=== PATIENT | female | born 2005 | race Caucasian/White ===

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

== ENCOUNTER 2024-05-16 22:42 | Emergency (ER) | payer SELFPAY ==
--- NOTE | ~2024-05-16 | US_ITS ---
EXAMINATION: US PELVIS CLINICAL INFORMATION: Menorrhagia. COMPARISON: None available. TECHNIQUE: Ultrasound of the pelvis is performed using both transabdominal and transvaginal transducers along with Doppler. Transvaginal imaging is performed due to inadequate visualization transabdominally. FINDINGS: Uterus: The uterus is anteverted and measures 7.3 x 4 x 4.5 cm. A nabothian cyst is noted. The double wall endometrial thickness is 1.2 mm. The uterus is smooth in contour and has normal myometrial echogenicity. No visible fibroid. Adnexa: Both ovaries are visualized. There is normal color flow to the adnexa. There is no ovarian torsion. There is no pelvic ascites or fluid collection. Right ovary measures 3 x 3 x 1.8 cm. Left ovary measures 3.2 x 1.8 x 2.2 cm. US/US pelvic and transvaginal IMPRESSION: No significant abnormality seen.
[2024-05-16 22:51] VITALS: BP 122/77; PULSE 68; RESP 18; TEMP 36.1; O2SAT 98; BMI 38.4
[2024-05-16 23:40] LABS: Hematocrit 39.7 % (37.0-47.0); Hemoglobin 13.1 g/dl (12.0-16.0); Mean Corpuscular Hemoglobin 28.7 pg (27.0-33.0); Mean Corpuscular Volume 86.9 fL (80.0-98.0); Mean Platelet Volume 9.9 fL (9.4-12.3); Platelet Count 311 X10*3/uL (160-400); Red Blood Count 4.57 X10*6/uL (4.20-5.50); Red Cell Distribution Width 12.6 % (11.0-16.0); White Blood Count 12.2 X10*3/uL (4.8-10.8)
[2024-05-16 23:52] LABS: UPreg QC Valid YES; Urine Pregnancy NEGATIVE (NEGATIVE)
[2024-05-16 23:53] LABS: Appearance Urine Cloudy; Glucose Urine UA Negative (Negative); Leukocyte Esterase Urine Trace (Negative); Nitrite Urine Positive (Negative); Specific Gravity - Urine >= 1.030 (1.005-1.025); UMIC TRIGGER UACC YES; Urine Blood Moderate (2+) (Negative); Urine Ketones Trace mg/dL (Negative); Urine Protein 300 (3+) mg/dL (Neg-Trace)
[2024-05-16 23:54] LABS: Color Urine RED; RBC Urine >20 /HPF (0-2); UACC Culture Trigger YES
[2024-05-16 23:55] LABS: Bacteria Urine 1+ (None Seen); Hyaline Casts Urine 0-2 /LPF (0-2)
[2024-05-16 23:58] LABS: Alanine Aminotransferase 19 U/L (0-31); Albumin Level 4.4 g/dL (3.5-5.0); Alkaline Phosphatase 98 U/L (39-117); Anion Gap 12 (12-20); Aspartate Amino Transferase 16 U/L (5-31); Bilirubin Total 0.4 mg/dL (0.0-1.0); Blood Urea Nitrogen 12 mg/dL (9-16); Calcium 9.6 mg/dL (8.4-10.2); Carbon Dioxide 25 mmol/L (22-29); Chloride 107 mmol/L (96-108); Creatinine Clr Calc Pharmacy 129.7; Estimated Glomerular Filt Rate > 60; Glucose Random 97 mg/dL (60-115); Potassium 3.8 mmol/L (3.3-5.1); Sodium 140 mmol/L (135-145); Total Protein 7.3 g/dL (6.5-8.0)
[2024-05-17] VITALS: BP 116/69; PULSE 77; RESP 16; TEMP 37.1; O2SAT 100
[2024-05-17 00:52] VITALS: BP 114/62; BP 116/69; BP 117/67; PULSE 65; PULSE 69
--- NOTE | 2024-05-17 01:29 | ED_ITS ---
HPI - General Adult General Chief complaint: Vaginal Bleeding Stated complaint: Heavy Menses Time Seen by Provider: 05/17/24 01:29 History of Present Illness ED Provider: Coty ALVAREZ narrative: The patient is a 18-year-old female who says that she started having menses four days ago on Friday. She says that the morning before her menses began she had taken plan B because she had had unprotected intercourse the night before. The patient has sense that since her menses started the menses have been unusually heavy and uncomfortable. She has been passing large clots. She has been changing pads and tampons with great frequency. No syncope. No nausea or vomiting. No fever, sweats, chills. Related Data Previous Rx's ?Medication ?Instructions ?Recorded sulfamethoxazole 800 1 tab PO BID 7 days #14 tabs 08/05/22 mg-trimethoprim 160 mg tablet (Bactrim DS) tranexamic acid 650 mg tablet 1,300 mg (2 x 650 mg) PO TID 5 05/17/24 days #30 tabs Allergies Allergy/AdvReac Type Severity Reaction Status Date / Time amoxicillin [AMOXICILLIN] Allergy Unknown HIVES Verified 05/16/24 22:56 kiwi [KIWI] Allergy Unknown SWELLING Verified 05/16/24 22:56 Review of Systems 2 Review of Systems: Yes all other systems are reviewed and are negative [facility] Social History Social History Alcohol intake: current Smoked in Last 30 Days: No Use of substances other than those prescribed or required for medical reasons: Yes Substance Use Type: Marijuana Advance Directives: No Advance Directives Information Provided: Yes Do you have a plan to hurt others: No Plan Physical Exam ED Vital Signs: Vital Signs - 24 hr 05/16/24 22:51 05/17/24 00:00 05/17/24 00:52 Temperature 96.9 F 98.7 F Pulse Rate 68 77 65 Respiratory Rate 18 16 Blood Pressure 122/77 116/69 114/62 Pulse Oximetry 98 100 Oxygen Delivery Method Room Air Room Air 05/17/24 00:52 05/17/24 00:52 Temperature Pulse Rate 69 Respiratory Rate Blood Pressure 117/67 116/69 Pulse Oximetry Oxygen Delivery Method BMI result Body Mass Index 38.4 Const Other: The patient is awake, alert, pleasant, cooperative. She does not appear in acute distress. HENMT Other: Face is symmetrical, mucous membranes moist Eyes Other: Pupils are round equal, conjunctivae clear Neck Other: Moving her neck easily Resp Effort & Inspection: normal respiratory effort Auscultation: clear to auscultation bilaterally Cardio Rate: regular rate Rhythm: regular rhythm Heart sounds: S1 normal heart sound present and S2 normal heart sound present GI Other: Abdomen is soft and nontender Skin Other: Skin is dry and unremarkable Neuro Other: Awake, alert, appropriate, grossly neurologically intact Extrem Other: No peripheral edema Medications Administered Discontinued Medications Generic Name Dose Route Start Last Admin Trade Name Freq PRN Reason Stop Dose Admin Ketorolac Tromethamine 30 mg 05/17/24 01:35 05/17/24 01:54 Ketorolac Tromethamine 30 Mg/Ml Vial IM 05/17/24 01:36 30 mg ONCE ONE Administration Medical Decision Making Medical Decision Making [facility] Narrative: The patient is a 18-year-old female who presents with vaginal bleeding. She says that vaginal bleeding started at the time that she expected her menses but the degree of bleeding and the crampy discomfort is worse than usual. She says she has gone through multiple pads and passed large clots in a manner that she has never done before. test is negative. Hemoglobin is stable. Clinically the patient is stable with a normal heart rate and blood pressure. Pelvic ultrasound is unremarkable. The patient was given 30 mg of IM ketorolac. She will be prescribed TXA orally. She should follow up with Gynecology. Return if worse. Lab Data 05/16/24 23:27 05/16/24 23:27 Labs: Lab Results 05/16/24 Range/Units 23:27 WBC 12.2 H (4.8-10.8) X10*3/uL RBC 4.57 (4.20-5.50) X10*6/uL Hgb 13.1 (12.0-16.0) g/dl Hct 39.7 (37.0-47.0) % MCV 86.9 (80.0-98.0) fL MCH 28.7 (27.0-33.0) pg MCHC 33.0 (31.0-35.0) g/dl RDW 12.6 (11.0-16.0) % Plt Count 311 (160-400) X10*3/uL MPV 9.9 (9.4-12.3) fL Absolute Nucleated RBC 0.000 (0.0-0.012) X10*3/uL Nucleated RBC % (auto) 0.0 (0.0-0.2) /100WBC Sodium 140 (135-145) mmol/L Potassium 3.8 (3.3-5.1) mmol/L Chloride 107 (96-108) mmol/L Carbon Dioxide 25 (22-29) mmol/L Anion Gap 12 (12-20) BUN 12 (9-16) mg/dL Creatinine 0.86 (0.5-1.4) mg/dL Estim Creat Clear Calc 129.7 Estimated GFR > 60 Random Glucose 97 (60-115) mg/dL Calcium 9.6 (8.4-10.2) mg/dL Total Bilirubin 0.4 (0.0-1.0) mg/dL AST 16 (5-31) U/L ALT 19 (0-31) U/L Alkaline Phosphatase 98 (39-117) U/L Total Protein 7.3 (6.5-8.0) g/dL Albumin 4.4 (3.5-5.0) g/dL Urine Color RED Urine Appearance Cloudy Urine pH 6.0 (5.0-9.0) Ur Specific [place] >= 1.030 H (1.005-1.025) Urine Protein 300 (3+) H (Neg-Trace) mg/dL Urine Glucose (UA) Negative (Negative) mg/dL Urine Ketones Trace (Negative) mg/dL Urine Blood Moderate (2+) H (Negative) Urine Nitrite Positive H (Negative) Ur Leukocyte Esterase Trace H (Negative) Urine RBC >20 H (0-2) /HPF Urine WBC 6-10 (0-5) /HPF Ur Squamous Epith Cells 3-5 (0-2) /HPF Urine Bacteria 1+ (None Seen) Hyaline Casts 0-2 (0-2) /LPF Urine Test NEGATIVE (NEGATIVE) Discharge Plan Discharge Clinical Impression: Menorrhagia Patient Disposition: Home, Self-Care Instructions: Menorrhagia (ED) Additional Instructions: I have sent a prescription for medication called tranexamic acid to your pharmacy. Please take this 3 times a day for 5 days. This medication is effective in reducing heavy vaginal bleeding with periods. I think it would also be reasonable for you to see a farm machine tender. You have the name and number of Dr. Patel's office. Please call the office in the morning for a follow up appointment. Return to the emergency room if significantly worse. Prescriptions: New tranexamic acid 650 mg tablet 1,300 mg PO TID 5 Days Qty: 30 0RF No Action sulfamethoxazole-trimethoprim [Bactrim DS] 800-160 mg tablet 1 tab PO BID 7 Days Qty: 14 0RF Referrals: Leoncio Patel MD [Physician] - (Abnormally heavy menstrual bleeding) Print Language: Korean
[2024-05-17] MEDS: Ketorolac Tromethamine 30 MG/ML VIAL IM (01:54)
[2024-05-17 03:28] VITALS: BP 117/68; PULSE 68; RESP 16; TEMP 36.8; O2SAT 99
== END 2024-05-17 03:29 | disposition home or self-care (01) ==
PROVIDERS: Emergency Provider Emergency Medicine; PCP Pediatrics
DX: N92.0 Excessive and frequent menstruation with regular cycle (principal); R10.2 Pelvic and perineal pain; Z79.899 Other long term (current) drug therapy
CPT/HCPCS: 36415; 76830; 76856; 80053; 81001; 81025; 85027; 87086; 96372; 99284; J1885

== ENCOUNTER 2024-12-14 00:03 | Emergency (ER) | payer SELFPAY ==
[2024-12-14 00:06] VITALS: BP 134/88; PULSE 62; RESP 17; TEMP 36.7; O2SAT 98; BMI 34.8
[2024-12-14 00:28] LABS: MANUAL DIFF FLAG NO
[2024-12-14 00:29] LABS: Basophils Percent Auto 0.3 % (0-2); Eosinophils Absolute Auto 0.1 X10*3/uL (0.0-0.4); Eosinophils Percent Auto 0.5 % (0-4); Hematocrit 40.2 % (37.0-47.0); Hemoglobin 13.5 g/dl (12.0-16.0); Imm Gran Abs Auto 0.03 X10*3/uL (0.00-0.03); Imm Gran Pct Auto 0.3 % (0.0-0.4); Lymphocytes Absolute Auto 2.5 X10*3/uL (1.2-4.9); Lymphocytes Percent Auto 21.2 % (20-40); Mean Corpuscular HGB Conc 33.6 g/dl (31.0-35.0); Mean Corpuscular Hemoglobin 28.1 pg (27.0-33.0); Mean Corpuscular Volume 83.6 fL (80.0-98.0); Mean Platelet Volume 9.7 fL (9.4-12.3); Monocytes Absolute Auto 0.8 X10*3/uL (0.1-1.2); Neutrophils Absolute Auto 8.3 x10*3/uL (2.0-8.3); Neutrophils Percent Auto 70.7 % (45-73); Platelet Count 277 X10*3/uL (160-400); Red Blood Count 4.81 X10*6/uL (4.20-5.50); Red Cell Distribution Width 13.1 % (11.0-16.0); White Blood Count 11.7 X10*3/uL (4.8-10.8)
[2024-12-14 01:00] LABS: Alanine Aminotransferase 20 U/L (0-31); Albumin Level 4.1 g/dL (3.5-5.0); Anion Gap 11 (12-20); Aspartate Amino Transferase 24 U/L (5-31); Bilirubin Total 0.4 mg/dL (0.0-1.0); Blood Urea Nitrogen 12 mg/dL (9-16); Calcium 9.8 mg/dL (8.4-10.2); Carbon Dioxide 27 mmol/L (22-29); Chloride 107 mmol/L (96-108); Estimated Glomerular Filt Rate > 60; Glucose Random 94 mg/dL (60-115); Lipase 14 U/L (8-78); Potassium 3.8 mmol/L (3.3-5.1); Sodium 141 mmol/L (135-145)
[2024-12-14 01:06] LABS: HCG Quantitative < 2 mIU/mL; Influenza A PCR NEGATIVE (Negative); Influenza B PCR NEGATIVE (Negative); Resp Syncy Virus RNA Qual PCR NEGATIVE (Negative); SARS COV2 PCR INHOUSE NEGATIVE (Negative)
[2024-12-14 03:15] LABS: Alkaline Phosphatase 82 U/L (39-117)
[2024-12-14 03:56] VITALS: BP 118/58; PULSE 56; RESP 16; TEMP 36.8; O2SAT 97
--- NOTE | 2024-12-14 04:12 | ED_ITS ---
HPI - General Adult General Chief complaint: Nausea/Vomiting/Diarrhea Stated complaint: vomiting blood Time Seen by Provider: 12/14/24 03:50 Source: patient Mode of arrival: ambulatory Limitations: no limitations History of Present Illness ED Provider: DR. Ivy HPI narrative: 19-year-old female came in for evaluation of headache that is similar to her prior headache, patient with history of migraine. Patient started to have nausea and vomiting noticed blood streaks in the vomit. Complaining of epigastric pain. No photophobia, no neck stiffness. No sick contacts, no recent travel, no diarrhea, last bowel movement was early yesterday and was normal. Related Data Previous Rx's ?Medication ?Instructions ?Recorded sulfamethoxazole 800 1 tab PO BID 7 days #14 tabs 08/05/22 mg-trimethoprim 160 mg tablet (Bactrim DS) tranexamic acid 650 mg tablet 1,300 mg (2 x 650 mg) PO TID 5 05/17/24 days #30 tabs omeprazole 40 mg capsule,delayed 40 mg PO DAILY #14 caps 12/14/24 release Allergies Allergy/AdvReac Type Severity Reaction Status Date / Time amoxicillin [AMOXICILLIN] Allergy Unknown HIVES Verified 12/14/24 00:09 kiwi [KIWI] Allergy Unknown SWELLING Verified 12/14/24 00:09 Review of Systems 2 Review of Systems: All other systems are reviewed and are negative Constitutional: Reports as per HPI and Reports no additional constitutional complaints Eyes: Reports as per HPI and Reports no additional eye complaints Reports system reviewed and no additional complaints, except as documented Cardiovascular: Reports as per HPI and Reports no additional cardiovascular complaints Respiratory: Reports as per HPI and Reports no additional respiratory complaints Gastrointestinal: Reports as per HPI and Reports no additional gastrointestinal complaints Genitourinary: Reports no additional female genitourinary complaints Musculoskeletal: Reports no additional musculoskeletal complaints Skin/Breast: Reports system reviewed and no additional complaints, except as docu Psychiatric: Reports no additional psychiatric complaints Endocrine: Reports no additional endocrine complaints Hematologic/Lymphatic: Reports no additional hematologic/lymphatic complaints Allergic/Immunologic: Reports no additional allergic/immunologic complaints Reports system reviewed and no additional complaints, except as documented and Reports Abnormal speech present [facility] Social History Social History Alcohol intake: current Substance Use Type: Marijuana Advance Directives: No Advance Directives Information Provided: Yes Do you have a plan to hurt others: No Plan Physical Exam ED Vital Signs: Vital Signs - 24 hr 12/14/24 00:06 12/14/24 03:56 12/14/24 06:19 Temperature 98.0 F 98.3 F 98.8 F Pulse Rate 62 56 51 Respiratory Rate 17 16 16 Blood Pressure 134/88 118/58 L 115/55 L Pulse Oximetry 98 97 97 Oxygen Delivery Method Room Air Room Air Room Air BMI result Body Mass Index 34.8 Vital signs have been reviewed and appear to be correct. Blood pressure elevated. Heart rate normal. Respiratory rate normal. Temperature normal. Oxygen saturation normal. Appearance: Alert. Oriented X3. No acute distress. Head: Normal external exam. Normocephalic. Atraumatic. No Mcelroy signs noted. No raccoon eyes noted Eyes: PERRLA. EOMI. Conjunctiva and sclera normal. Eyelids normal. ENT: TM's Normal. Pharynx normal. Uvula midline. Moist mucous membranes. No trismus noted. No drooling noted. No muffled voice noted. Neck: Normal inspection. Neck supple. FROM. No adenopathy. Thyroid Normal. No meningeal signs. No neck mass noted. CVS: Normal heart rate and rhythm. Heart sound normal. No murmurs noted. Pulses normal throughout. Respiratory: No respiratory distress. Painless inspiration. Breath sounds normal. No wheezes/rales/rhonchi noted. Chest nontender. No accessory muscle usage noted or decreased air movement noted. Abdomen: Soft and nontender. Bowel sounds normal in all 4 quadrants. No distention noted. No organomegaly noted. No visible injury noted. Back: No CVA tenderness. Full range of motion noted. Skin: Skin warm and dry. Normal skin color. Normal skin turgor. No rashes/lesions/lacerations noted. Extremities: No lower extremity edema. Extremities exhibit normal range of motion. Extremities nontender. Neuro: Oriented X 3. Cranial nerve exam: II-XII are grossly intact No motor deficit. No sensory deficit. Reflexes normal. Course Reevaluation(s) Reevaluation #1: Migraine and vomiting. Patient feels better headache and epigastric pain have improved, able tolerate p.o. intake.. Time: 06:28 Medications Administered Discontinued Medications Generic Name Dose Route Start Last Admin Trade Name Freq PRN Reason Stop Dose Admin Al Hydroxide/Mg Hydroxide 30 ml 12/14/24 04:11 12/14/24 04:32 Magnesium Hydrox/Alum Hydrox 30 Ml Oral.Susp PO 12/14/24 04:12 30 ml ONCE ONE Administration Diphenhydramine HCl 25 mg 12/14/24 04:11 12/14/24 04:32 Diphenhydramine Hcl 50 Mg/Ml Vial IVPUSH 12/14/24 04:12 25 mg ONCE ONE Administration Famotidine 20 mg 12/14/24 04:11 12/14/24 04:32 Famotidine/Pf 20 Mg/2 Ml Vial IVPUSH 12/14/24 04:12 20 mg ONCE ONE Administration Sodium Chloride 1,000 mls @ 999 mls/hr 12/14/24 04:11 12/14/24 05:45 Ns IV 12/14/24 05:11 Infused .Q1H1M ONE Infusion Acetaminophen 1,000 mg in 100 mls @ 400 mls/hr 12/14/24 04:24 12/14/24 04:50 Ofirmev IV 12/14/24 04:38 Infused ONCE ONE Infusion Ondansetron HCl 4 mg 12/14/24 04:11 12/14/24 04:33 Ondansetron Hcl 4 Mg/2 Ml Vial IVPUSH 12/14/24 04:12 4 mg ONCE ONE Administration Medical Decision Making Differential Diagnosis Differential Diagnoses: The differential diagnosis associated with the presentation includes ( Migraine, headache, gastritis, gallbladder disease, dehydration, electrolyte derangement, severe anemia, gastroenteritis, food poisoning.) Admission/Observation Consideration of admission/observation: Escalation of care including admission/observation considered Lab Data MDM Lab Attestation statement: I reviewed the patient's lab results. 12/14/24 00:20 12/14/24 00:20 Labs: Lab Results 12/14/24 Range/Units 00:20 WBC 11.7 H (4.8-10.8) X10*3/uL RBC 4.81 (4.20-5.50) X10*6/uL Hgb 13.5 (12.0-16.0) g/dl Hct 40.2 (37.0-47.0) % MCV 83.6 (80.0-98.0) fL MCH 28.1 (27.0-33.0) pg MCHC 33.6 (31.0-35.0) g/dl RDW 13.1 (11.0-16.0) % Plt Count 277 (160-400) X10*3/uL MPV 9.7 (9.4-12.3) fL Immature Gran % (Auto) 0.3 (0.0-0.4) % Neut % (Auto) 70.7 (45-73) % Lymph % (Auto) 21.2 (20-40) % Wilkin % (Auto) 7.0 (2-11) % Eos % (Auto) 0.5 (0-4) % Baso % (Auto) 0.3 (0-2) % Lymph # (Auto) 2.5 (1.2-4.9) X10*3/uL Wilkin # (Auto) 0.8 (0.1-1.2) X10*3/uL Eos # (Auto) 0.1 (0.0-0.4) X10*3/uL Baso # (Auto) 0.0 (0.0-0.2) X10*3/uL Abs Immat Gran (auto) 0.03 (0.00-0.03) X10*3/uL Absolute Neuts (auto) 8.3 (2.0-8.3) x10*3/uL Absolute Nucleated RBC 0.000 (0.0-0.012) X10*3/uL Nucleated RBC % (auto) 0.0 (0.0-0.2) /100WBC Sodium 141 (135-145) mmol/L Potassium 3.8 (3.3-5.1) mmol/L Chloride 107 (96-108) mmol/L Carbon Dioxide 27 (22-29) mmol/L Anion Gap 11 L (12-20) BUN 12 (9-16) mg/dL Creatinine 0.76 (0.5-1.4) mg/dL Estim Creat Clear Calc 138.0 Estimated GFR > 60 Random Glucose 94 (60-115) mg/dL Calcium 9.8 (8.4-10.2) mg/dL Total Bilirubin 0.4 (0.0-1.0) mg/dL AST 24 (5-31) U/L ALT 20 (0-31) U/L Alkaline Phosphatase 82 (39-117) U/L Total Protein 8.0 (6.5-8.0) g/dL Albumin 4.1 (3.5-5.0) g/dL Lipase 14 (8-78) U/L Beta HCG, Quant < 2 mIU/mL Influenza Type A (PCR) NEGATIVE (Negative) Influenza Type B (PCR) NEGATIVE (Negative) RSV RNA Qual (PCR) NEGATIVE (Negative) SARS-CoV-2 RNA (RT-PCR) NEGATIVE (Negative) Discharge Plan Discharge Clinical Impression: Migraine, Vomiting, Gastritis Patient Disposition: Home, Self-Care Instructions: Gastritis (ED), Migraine Headache (ED) Prescriptions: New omeprazole 40 mg capsule,delayed release(DR/EC) 40 mg PO DAILY Qty: 14 0RF No Action tranexamic acid 650 mg tablet 1,300 mg PO TID 5 Days Qty: 30 0RF sulfamethoxazole-trimethoprim [Bactrim DS] 800-160 mg tablet 1 tab PO BID 7 Days Qty: 14 0RF Stand Alone Forms: Work/School Release Print Language: Ugandan
[2024-12-14] MEDS: diphenhydrAMINE HCL 50 MG/ML VIAL 25 MG IVPUSH (04:32)
[2024-12-14] MEDS: Magnesium Hydrox/Alum Hydrox 30 ML ORAL.SUSP PO (04:32)
[2024-12-14] MEDS: Famotidine/PF 20 MG/2 ML VIAL IVPUSH (04:32)
[2024-12-14] MEDS: Acetaminophen 1,000 MG/100 ML PIGGYBACK 400 MG IV (04:33)
[2024-12-14] MEDS: 0.9 % Sodium Chloride 1,000 ML 999 ML IV (04:33)
[2024-12-14] MEDS: ondansetron HCL 4 MG/2 ML VIAL IVPUSH (04:33)
[2024-12-14 06:19] VITALS: BP 115/55; PULSE 51; RESP 16; TEMP 37.1; O2SAT 97
[2024-12-14 06:35] VITALS: BP 122/77; PULSE 68; RESP 14; TEMP 36.8; O2SAT 98
== END 2024-12-14 06:37 | disposition home or self-care (01) ==
PROVIDERS: Emergency Provider Emergency Medicine
DX: K29.70 Gastritis, unspecified, without bleeding (principal); R11.2 Nausea with vomiting, unspecified; R10.2 Pelvic and perineal pain; R51.9 Headache, unspecified; R10.13 Epigastric pain; Z03.818 Encounter for observation for suspected exposure to other biological agents ruled out
CPT/HCPCS: 0241U; 80053; 83690; 84702; 85025; 96361; 96365; 96375; 99284; J0131; J1200; J2405

== ENCOUNTER 2025-05-02 20:48 | Emergency (ER) | payer SELFPAY ==
--- NOTE | 2025-05-02 | ECG_ITS ---
Test Reason : SEIZURE Blood Pressure : */* mmHG Vent. Rate : 75 BPM Atrial Rate : 75 BPM P-R Int : 168 ms QRS Dur : 86 ms QT Int : 362 ms P-R-T Axes : 36 29 23 degrees QTcB Int : 404 ms Normal sinus rhythm with sinus arrhythmia Normal ECG No previous ECGs available Referred By: Generic ED Physician Electronically Signed By: JULIO GAR MD
--- NOTE | ~2025-05-02 | XR_ITS ---
CLINICAL HISTORY: tightness 2 view chest x-ray Comparison: None provided Findings: No consolidation or effusion. Normal size heart. No acute fracture. IMPRESSION: 1. No acute findings. This document has been electronically signed by: Chito Topete MD on 05/02/2025 22:27:39
[2025-05-02 20:48] VITALS: BP 145/82; BP 145/84; PULSE 78; PULSE 85; RESP 15; TEMP 37.1; O2SAT 98; O2SAT 99; BMI 37.0
--- OUTSIDE RECORDS SUMMARY | 2025-05-02 21:06 | XMS_ITS | Data Portability ---
Author Organization [facility] [id number] Address [address] [place] [address] Assessment No assessment recorded. Plan of Treatment Reminders Order Date Submit Date Provider Last Modified By Organization Details Last Modified Time Details Appointments None recorded. Lab None recorded. Referral None recorded. Procedures None recorded. Surgeries None recorded. Imaging None recorded. Medication Orders doxycycline hyclate 100 mg capsule 2022 023 [facility] #[id number], [address] [place], [address], 09:51:55 Patient TargetsNo targets recorded. Patient Instructions Encounter Date Encounter Id Patient Instructions Last Modified By Organization Details Last Modified Time 04/22/2023 [id number] insect stings an d bites: care instructions Not available 04/22/2023 09:51:53 cellulitis: care instructions Not available 04/22/2023 09:51:52 Reason for Referral None Reported. Problems No Known Problems Medical Equipment None Reported. Allergies Allergen ID Allergen Name Allergen Category Reaction Reaction Severity Criticality Documentation Date Start Date Code Code System Note Provider Name and Address Organization Details Recorded Time [id number] amoxicill in medicatio n Not available Not available Not available 04/22/2023 723 RxNorm unkno wn JULIA Soto [facility] 09:14:56 Medications Name Sig Start Date Stop Date Status Note LastModified by Organization Details LastModified Time doxycycline hyclate 100 mg capsule TAKE 1 CAPSULE BY MOUTH TWICE A DAY FOR 10 DAYS active Not Available Not Available No t Available meloxicam 15 mg tablet TAKE 1 TABLET BY MOUTH EVERY DAY NEEDED FOR PAIN 04/22 completed Not Available Not Available Not Available sulfamethoxa zole 800 mg-trimethop rim 160 mg tablet TAKE 1 TABLET BY MOUTH TWICE A DAY FOR 7 DAYS 04/22 completed Not Available Not Available Not Available Vitals Date Recorded Body height Body mass index (BMI) [Percentile] Per age and sex Body mass index (BMI) Body weight Pain severity - 0-10 verbal numeric rating [Score] - Reported Respiratory rate Oxygen saturation Oxygen saturation in Arterial blood by Pulse oximetry Heart rate Body temperature Systolic And Diastolic Provider Name and Address Organization Details Last Updated DateTime 3 165.1 cm 98 % 38.3 kg/m2 962571. 25 g 4 18 /min 98 % 98 % 59 /min 98.8 [degF] 133/85 mm[Hg] Miranda Telles [employer] 09:17:27 Social History Question Answer Notes LastModified by [employer] Details LastModified Time Tobacco Smoking Status Never Smoker JULIA Soto [employer] 04/22/2023 09:15:24 Have You Recently Traveled Abroad? No Information not available 04/22/2023 Sex: Unknown Functional Status Question Answer Note LastModified by [employer] Details LastModified Time Do you use any illicit or recreational drugs? No Information not available 04/22/2023 Do you or have you ever used any other forms of tobacco or nicotine? No Information not available 04/22/2023 What is your level of alcohol consumption? None Information not available 04/22/2023 Mental Status None recorded. Family History Relationship Description Onset Age of this Age Resolved Age Notes LastModified by Organization Details LastModified Time Father No current problems or disability [email or web address] Not available 04/22 09:15:16 Mother No current problems or disability [email or web address] Not available 04/22 09:15:16 Medical History No medical history recorded. Gynecological History Statement/Question Response Is there any chance of ? No Obstetrics History GPAL:G 0 P 0 0 0 0 Immunizations Vaccine Type Date Status Note Provider Nam e and Address Organization Details Recorded Time HPV9 6 completed JULIA Soto [place] [facility] [employer] 04/22/2023 09:14:43 HPV9 7 completed Miranda Monfette null, [place] - [facility] 04/22/2023 09:14:43 HPV9 5 completed Miranda Monfette null, PA - [facility] 04/22/2023 09:14:43 COVID-19, mRNA, LNP-S, PF, 30 mcg/0.3 mL dose 1 completed Miranda Monfette null, PA - [facility] 04/22/2023 09:14:43 COVID-19, mRNA, LNP-S, PF, 30 mcg/0.3 mL dose 1 completed Miranda Monfette null, PA - [facility] 04/22/2023 09:14:44 COVID-19, mRNA, LNP-S, bivalent, PF, 30 mcg/0.3 mL dose 2 completed Miranda Monfette null, PA - [facility] 04/22/2023 09:14:44 Tdap 5 completed Miranda Monfette null, PA - [facility] 04/22/2023 09:14:44 Influenza, split virus, trivalent, preservative 7 completed Miranda Monfette null, PA - [facility] 04/22/2023 09:14:44 Hep A, ped/adol, 2 dose 7 completed Miranda Monfette null, PA - [facility] 04/22/2023 09:14:44 Hep A, ped/adol, 2 dose 8 completed Miranda Monfette null, PA - [facility] 04/22/2023 09:14:44 meningococcal MCV4P 1 completed Miranda Monfette null, PA - [facility] 04/22/2023 09:14:44 meningococcal MCV4P 5 completed Miranda Monfette null, PA - [facility] 04/22/2023 09:14:44 Influenza, split virus, quadrivalent, PF 1 completed Miranda Monfette null, PA - [facility] 04/22/2023 09:14:44 Influenza, split virus, quadrivalent, PF 2 completed Miranda Sterling null, PA - [facility] 04/22/2023 09:14:44 Influenza, split virus, quadrivalent, PF 8 completed Miranda Doylee null, PA - [facility] 04/22/2023 09:14:44 Influenza, split virus, quadrivalent, PF 9 completed Miranda Gatestte null, PA - [facility] 04/22/2023 09:14:44 Past Encounters Encounter ID Performer Location Encounter Start Date Encounter Closed Date Diagnosis/Indication Diagnosis SNOMED-CT Code Diagnosis ICD10 Code Diagnosis Note [id number] [address] [place] [address] 05/08/2021 15:54:56 05/08/2021 17:50:27 [id number] [address] [place] [address] 06/26/2020 14:33:32 06/26/2020 15:35:45 [id number] [address] [address] [place] [address] 07/14/2022 09:00:03 07/14/2022 11:12:37 [id number] Jesus Goetz MD [address] [place] [address] 04/22/2023 08:19:44 04/22/2023 09:57:08 Infected insect bite 066542121 L08.9 Please follow up with PCP or Urgent Care in 3-5 days if no improvemen t or if any new symptoms occur that are concerning .recommend ed warm compresses or Epsom salt soaks. F/u for any increased swelling, redness, drainage, fever, or red streaks that travel up from the wound. Health Concerns Section Related Observation LastModified by Organization Detai ls LastModified Time None Recorded Concern Status LastModified by Organization Details LastModified Time None Recorded Advance Directives Directive None Recorded Payers Insurance Date Sequence Insurance Name Policy Number Policy Flores Covered Member ID Flores Member ID Guarantor Name 04/22/2023 1 [facility] [id number] Gissel Stoll [id number] Gissel Stoll OBGyn Episode No OBEpisode recorded.
--- OUTSIDE RECORDS SUMMARY | 2025-05-02 21:06 | XMS_ITS | Clinical Summary ---
Author Organization [facility] Address [address] [place] [address] Phone Care Team Providers Care Financial Accounting Manager Name Role Phone Physician, No Pcp Primary Care Provider Unavaila ble Allergies Active Allergy Reactions Criticality Noted Date Comments Amoxicillin Swelling 03/08/2025 Medications No known medications Active Problems No known active problems Encounters Date Type Department Care Team Description 03/08/2025 11:05 AM EDT - 03/08/2025 1:22 PM EDT Emergency [facility] Emergency [address] [place] [address] Gastroesophageal reflux disease, unspecified whether esophagitis present (Primary Dx) Discharge Disposition: Home or Self Care from Last 3 Months Social History Tobacco Use Types Packs/Day Years Used Date Smoking Tobacco: Never Smokeless Tobacco: Never Tobacco Cessation:Counseling Given: Not Answered Alcohol Use Standard Drinks/Week Comments Never 0 (1 standard drink = 0.6 oz pur e alcohol) Comments Unknown Sex and Gender Information Value Date Recorded Sex Assigned at Not on file Legal Sex Female 9:59 AM EDT Gender Identity Not on file Sexual Orientation Not on file Obstetrics History Last Filed Vital Signs Vital Sign Reading Time Taken Comments Blood Pressure 137/75 03/08/2025 12:49 PM EDT Pulse 72 03/08/2025 12:49 PM EDT Temperature 37.3 C (99.1 F) 03/08/2025 12:49 PM EDT Respiratory Rate 20 03/08/2025 12:49 PM EDT Oxygen Saturation 99% 03/08/2025 12:49 PM EDT Inhaled Oxygen Concentration - - Weight 90.3 kg (199 lb) 03/08/2025 10:08 AM EDT Height 167.6 cm (5' 6 ) 03/08/2025 10:08 AM EDT Body Mass Index 32.12 03/08/2025 10:08 AM EDT Plan of Treatment Health Maintenance Due Date Last Done Comments Gonorrhea/Chlamydia Screening 2003 Meningococcal B Vaccine (1 of 2 - Standard) 2019 COVID-19 Vaccine ( - season) 2024 08/21/2022, 04/03/2021, 03/13/2021 Depression Screening 10/06/2024 Cervical Cancer Screening: Pap Smear 2024 Annual Well Child Visit (3-21 years old) 03/08/2025 02/11/2022, 10/17/2020, 09/07/2019, Additional history exists Cholesterol Screening (Lipid Panel) 03/08/2025 HIV Screening 03/08/2025 Hepatitis C Screening 03/08/2025 Social Influencers of Health Screening 03/08/2025 Influenza Vaccine (#1) 2025 , 10/17/2020, 09/07/2019, Additional history exists DTaP,Tdap,and Td Vaccines (7 - Td or Tdap) 08/16/2025 08/16/2015, 01/31/2009, 07/31/2005, Additional history exists Hepatitis B Vaccines Completed 11/01/2004, 2003, 2003 HIB Vaccines Completed 07/31/2005, 05/07, 04/05/2004, Additional history exists Pneumococcal Vaccine: Pediatrics (0 to 5 Years) and At-Risk Patients (6 to 49 Years) Completed 07/31/2005, 05/25/2004, 04/05/2004, Additional history exists MMR Vaccines Completed 01/29/2008, 12/03/2004 Varicella Vaccines Completed 01/29/2008, 12/03/2004 IPV Vaccines Completed 01/31/2009, 10/07, 04/05/2004, Additional history exists HPV Vaccines Completed 11/27/2016, 10/06, 08/16/2015 Hepatitis A Vaccines Completed 08/05/2018, 11/27/19 17 Meningococcal ACWY Vaccine Completed 10/17/2020, RSV Immunization Patients Under 20 months Aged Out No longer eligible based on patient's age to complete this topic Procedures Procedure Name Priority Date/Time Associated Diagnosis Comments YU URINE CULTURE TUBE STAT 03/08/2025 12:03 PM EDT URINALYSIS WITH REFLEX MICROSCOPIC AND CULTURE STAT 03/08/2025 12:03 PM EDT URINALYSIS WITH REFLEX MICROSCOPIC AND CULTURE STAT 03/08/2025 12:03 PM EDT CULTURE URINE STAT 03/08/2025 12:03 PM EDT POC , URINE DIAGNOSTIC STAT 03/08/2025 11:08 AM EDT CBC WITH AUTO DIFFERENTIAL STAT 03/08/2025 11:08 AM EDT LIPASE STAT 03/08/2025 11:08 AM EDT COMPREHENSIVE METABOLIC PANEL STAT 03/08/2025 11:08 AM EDT CBC AND DIFFERENTIAL STAT 03/08/2025 11:08 AM EDT from Last 3 Months Results * (ABNORMAL) Urinalysis with reflex microscopic and culture (03/08/2025 12:03 PM EDT) Specific Lohman Urine 1.020 1.003 - 1.030 LAB URINALYSIS - AUTOMATED METHOD 03/08/2025 12:44 PM EDT [facility] pH, Urine 7.5 5.0 - 8.0 pH LAB URINALYSIS - AUTOMATED METHOD 03/08/2025 12:44 PM EDT [facility] Leukocytes, Urine Trace(A) Negative LAB URINALYSIS - AUTOMATED METHOD 03/08/2025 12:44 PM EDT [facility] Nitrite, Urine Negative Negative LAB URINALYSIS - AUTOMATED METHOD 03/08/2025 12:44 PM EDT [facility] Protein, Urine Negative <=Trace mg/dL LAB URINALYSIS - AUTOMATED METHOD 03/08/2025 12:44 PM [facility] Glucose, Urine Negative Negative mg/dL LAB URINALYSIS - AUTOMATED METHOD 03/08/2025 12:44 PM [facility] Ketones, Urine Negative Negative mg/dL LAB URINALYSIS - AUTOMATED METHOD 03/08/2025 12:44 PM [facility] Urobilinogen, Urine 1.0 0.2 - 1.0 mg/dL LAB URINALYSIS - AUTOMATED METHOD 03/08/2025 12:44 PM [facility] Bilirubin, Urine Negative Negative LAB URINALYSIS - AUTOMATED METHOD 03/08/2025 12:44 PM [facility] Blood, Urine Negative Negative LAB URINALYSIS - AUTOMATED METHOD 03/08/2025 12:44 PM [facility] RBC, Urine 1.4 0 - 4 /HPF LAB URINALYSIS - AUTOMATED METHOD 03/08/2025 12:44 PM [facility] WBC, Urine 3.8 0 - 4 /HPF LAB URINALYSIS - AUTOMATED METHOD 03/08/2025 12:44 PM [facility] Squamous Epithelial, Urine >100(H) 0 - 60 /LPF LAB URINALYSIS - AUTOMATED METHOD 03/08/2025 12:44 PM [facility] Bacteria, Urine Few(A) Negative /HPF LAB URINALYSIS - AUTOMATED METHOD 03/08/2025 12:44 PM [facility] Hyaline Casts, Urine 0.4 0 - 3 /LPF LAB URINALYSIS - AUTOMATED METHOD 03/08/2025 12:44 PM [facility] Urine Urine specimen obtained by clean catch procedure / Unknown Non-blood Collection / Unknown 03/08/2025 12:03 PM EDT 03/08/2025 12:28 PM EDT us Lizett [facility] LAB URINE ORDERABLES Final Result Performing Organization Address [facility]/ZIP Co de Phone Number [facility] [address] [place] [address], [place] [phone] * Yu urine culture tube (03/08/2025 12:03 PM EDT) Extra Tube Hold for add-ons. 03/08/2025 2:01 PM EDT [facility] Comment:Auto resulted. Urine Urine specimen obtained by clean catch procedure / Unknown Non-blood Collection / Unknown 03/08/2025 12:03 PM EDT 03/08/2025 12:28 PM EDT Lizett [facility] URINE ORDERABLES Final Result Performing Organization Address [facility] Co de Phone Number [facility] [address] [place] [address], [place] [phone] * Culture urine (03/08/2025 12:03 PM EDT) Pathologist [facility] Culture, Urine 10,000-49,000 CFU/mL Mixed urogenital jazz, no uropathogens present. Suggest repeat specimen if clinically indicated. 03/09/2025 10:30 AM EDT [facility] Urine Urine specimen obtained by clean catch procedure / Unknown Non-blood Collection / Unknown 03/08/2025 12:03 PM EDT 03/08/2025 12:44 PM EDT Lizett [facility]ONT LAB MICROBIOLOGY - GENERAL ORDERABLES Final Result Performing Organization Address City/[facility]/ZIP Co de Phone Number [facility] [address] [place] [address], [place] [phone] * CBC auto differential (03/08/2025 11:08 AM EDT) WBC 7.8 4.8 - 10.8 K/[facility] LAB HEMETOLOGY METHOD 03/08/2025 11:35 AM [facility] RBC 4.60 3.80 - 4.80 M/mcL LAB HEMETOLOGY METHOD 03/08/2025 11:35 AM [facility] Hemoglobin 12.8 11.5 - 16.0 g/dL LAB HEMETOLOGY METHOD 03/08/2025 11:35 AM [facility] Hematocrit 40.0 35.0 - 47.0 % LAB HEMETOLOGY METHOD 03/08/2025 11:35 AM [facility] MCV 87.3 79.0 - 98.0 FL LAB HEMETOLOGY METHOD 03/08/2025 11:35 AM [facility] MCH 27.9 27.0 - 32.0 pcg LAB HEMETOLOGY METHOD 03/08/2025 11:35 AM [facility] MCHC 32.0 32.0 - 37.0 g/dL LAB HEMETOLOGY METHOD 03/08/2025 11:35 AM [facility] RDW 13.2 11.0 - 15.0 % LAB HEMETOLOGY METHOD 03/08/2025 11:35 AM [facility] Platelets 272 130 - 400 K/mcL LAB HEMETOLOGY METHOD 03/08/2025 11:35 AM [facility] MPV 10.1 7.0 - 11.0 FL LAB HEMETOLOGY METHOD 03/08/2025 11:35 AM [facility] NRBC 0.0 <1.0 % LAB HEMETOLOGY METHOD 03/08/2025 11:35 AM [facility] NRBC Absolute 0.00 <0.10 K/mcL LAB HEMETOLOGY METHOD 03/08/2025 11:35 AM [facility] Neutrophils Relative 69.5 % LAB HEMETOLOGY METHOD 03/08/2025 11:35 AM [facility] Lymphocytes Relative 22.3 % LAB HEMETOLOGY METHOD 03/08/2025 11:35 AM [facility] Monocytes Relative 6.1 % LAB HEMETOLOGY METHOD 03/08/2025 11:35 AM [facility] Eosinophils Relative 1.4 % LAB HEMETOLOGY METHOD 03/08/2025 11:35 AM [facility] Basophils Relative 0.3 % LAB HEMETOLOGY METHOD 03/08/2025 11:35 AM [facility] Immature Granulocytes Relative 0.4 % LAB HEMETOLOGY METHOD 03/08/2025 11:35 AM [facility] Neutrophils Absolute 5.44 1.50 - 7.00 K/mcL LAB HEMETOLOGY METHOD 03/08/2025 11:35 AM [facility] Lymphocytes Absolute 1.74 1.00 - 5.00 K/mcL LAB HEMETOLOGY METHOD 03/08/2025 11:35 AM [facility] Monocytes Absolute 0.48 0.20 - 1.00 K/mcL LAB HEMETOLOGY METHOD 03/08/2025 11:35 AM [facility] Eosinophils Absolute 0.11 0.00 - 0.50 K/mcL LAB HEMETOLOGY METHOD 03/08/2025 11:35 AM [facility] Basophils Absolute 0.02 0.00 - 0.20 K/mcL LAB HEMETOLOGY METHOD 03/08/2025 11:35 AM [facility] Immature Granulocytes Absolute 0.03 0.00 - 0.03 K/mcL LAB HEMETOLOGY METHOD 03/08/2025 11:35 AM [facility] Blood Venous blood specimen / Unknown Venipuncture / Unknown 03/08/2025 11:08 AM EDT 03/08/2025 11:26 AM EDT us Heath Painting DO LAB BLOOD ORDERABLES Final Result Performing Organization Address City/[facility]/ZIP Co de Phone Number [facility] [address] [place] [address], [place] [phone] * POC , urine manually resulted (03/08/2025 11:08 AM EDT) HCG, Ur POC Negative Negative POC hCG Int QC Pass? Yes Yes Urine Urine specimen obtained by clean catch procedure / Unknown 03/08/2025 11:08 AM EDT us Heath Painting DO POINT OF CARE TEST ENTER/ED IT ORDERABLES Final Result * Lipase (03/08/2025 11:08 AM EDT) Pathologist [facility] Lipase 21 13 - 75 unit/L LAB CHEMISTRY METHOD 03/08/2025 11:55 AM EDT [facility] Blood Venous blood specimen / Unknown Venipuncture / Unknown 03/08/2025 11:08 AM EDT 03/08/2025 11:26 AM EDT us Heath Painting DO LAB BLOOD ORDERABLES Final Result Performing Organization Address City/[facility]/ZIP Co de Phone Number [facility] [address] [place] [address], [place] [phone] * (ABNORMAL) Comprehensive metabolic panel (03/08/2025 11:08 AM EDT) [facility] Sodium 138 133 - 145 mmol/L LAB CHEMISTRY METHOD 03/08/2025 12:02 PM EDT [facility] Potassium 4.2 3.5 - 5.5 mmol/L LAB CHEMISTRY METHOD 03/08/2025 12:02 PM EDT [facility] Chloride 106 96 - 110 mmol/L LAB CHEMISTRY METHOD 03/08/2025 12:02 PM EDT [facility] CO2 29 21 - 32 mmol/L LAB CHEMISTRY METHOD 03/08/2025 12:02 PM [facility] Anion Gap 3 3 - 11 LAB CHEMISTRY METHOD 03/08/2025 12:02 PM [facility] Glucose 105(H) 70 - 100 mg/dL LAB CHEMISTRY METHOD 03/08/2025 12:02 PM [facility] BUN 5 5 - 25 mg/dL LAB CHEMISTRY METHOD 03/08/2025 12:02 PM [facility] Creatinine 0.73 0.50 - 1.10 mg/dL LAB CHEMISTRY METHOD 03/08/2025 12:02 PM [facility] eGFR 120 >=60 mL/min/1. 73m2 LAB CHEMISTRY METHOD 03/08/2025 12:02 PM [facility] Comment:Calculation based on the Chronic Kidney Disease Epidemiology Collaboration (CKD-EPI) equation refit without adjustment for race. BUN/Creatinine Ratio 6.8 LAB CHEMISTRY METHOD 03/08/2025 12:02 PM [facility] Calcium 9.6 8.5 - 10.5 mg/dL LAB CHEMISTRY METHOD 03/08/2025 12:02 [facility] AST (SGOT) 13 10 - 42 unit/L LAB CHEMISTRY METHOD 03/08/2025 12:02 [facility] ALT (SGPT) 18 10 - 60 unit/L LAB CHEMISTRY METHOD 03/08/2025 12:02 PM [facility] Alkaline Phosphatase 91 42 - 121 unit/L LAB CHEMISTRY METHOD 03/08/2025 12:02 PM [facility] Total Protein 7.3 6.0 - 8.0 g/dL LAB CHEMISTRY METHOD 03/08/2025 12:02 PM [facility] Albumin 3.8 3.2 - 5.0 g/dL LAB CHEMISTRY METHOD 03/08/2025 12:02 PM [facility] Total Bilirubin 0.4 0.0 - 1.4 mg/dL LAB CHEMISTRY METHOD 03/08/2025 12:02 PM EDT [facility] Blood Venous blood specimen / Unknown Venipuncture / Unknown 03/08/2025 11:08 AM EDT 03/08/2025 11:26 AM EDT us Heath Painting DO LAB BLOOD ORDERABLES Final Result [facility] [address] [place] [address], [place] [phone] from Last 3 Months Care Teams Financial Accounting Manager Relationship Specialty Start Date End Date Physician, No Pcp PCP - General 03/08/25
--- NOTE | 2025-05-02 21:30 | PC.NURSE ---
pt biba from home, a&ox4, respirations even and unlabored. reports witnessed seizure travel pta. pt reports she felt the seizure coming on and her signif called 911. pt reports she sat down prior to seizure, denies head strike and thinners. pt reports some chest tightness at this time. vss. seizure precautions in place. 18g in left ac by ems
--- NOTE | 2025-05-02 21:33 | ED.GENADULT ---
HPI - General Adult General Chief complaint: Seizure Stated complaint: seizure 10 mins long, hx of seizures Time Seen by Provider: 05/02/25 22:01 Source: patient, EMS, RN notes reviewed and old records reviewed Mode of arrival: ambulatory Limitations: no limitations History of Present Illness ED Provider: Emma Kovacs PA-C HPI narrative: [facility] activity. One month ago patient's brother , cause unknown. This has been emotionally challenging for patient to cope with, understandably. Patient has been experiencing an increase in anxiety and panic attacks since this time. Patient reports feeling quite emotional with chest tightness prior to the event that brought her in. She went to the bathroom to splash water on her face as her mom recommended that for when she feels upset. She felt her anxiety raising with her hyperventilating so she went to sit against the bathroom tub. She recalls sliding down on it not falling. Her boyfriend went to check on her and he saw her lying on the ground shaking a little bit with her eyes rolled back. It only lasted a few seconds and she looked like she was drained and white . Once it ended he sat her back up and she was immediately responsive and not confused. Patient does not recall the events of shaking. She did not soil herself or bite her tongue. She did not sustain any injuries. She is still reporting her chest feeling tight but does not feel sob and denies palpitations. She does not have a headache and does not feel dizzy. She denies any skipping of meals but does report her appetite has not been the same since her brother passed. No paresthesias or weakness of limbs. She denies the inability to control her limbs after her seizure like activity. 5 years ago she had seizure like activity too and was seen by specialist who did not recommend any seizure medications as it was never diagnosed as 'true seizure'. No family history of this either. She is not on any anticoagulation. Patient's boyfriend, brother and mom are at bedside and confirm history above. Patient denies any SI, HI or AVH. She feels safe to go home. Related Data Previous Rx's ?Medication ?Instructions ?Recorded sulfamethoxazole 800 1 tab PO BID 7 days #14 tabs 08/05/22 mg-trimethoprim 160 mg tablet (Bactrim DS) tranexamic acid 650 mg tablet 1,300 mg (2 x 650 mg) PO TID 5 05/17/24 days #30 tabs omeprazole 40 mg capsule,delayed 40 mg PO DAILY #14 caps 12/14/24 release Allergies Allergy/AdvReac Type Severity Reaction Status Date / Time amoxicillin (AMOXICILLIN) Allergy Unknown HIVES Verified 05/02/25 20:54 kiwi (KIWI) Allergy Unknown SWELLING Verified 05/02/25 20:54 Review of Systems Review of Systems: Yes all other systems are reviewed and are negative PMFSH Past Medical History Attestation statement: The following information was validated with the patient. Source: old records reviewed, obtained from family and nursing notes reviewed Social History Social History Alcohol intake: current Substance Use Type: Marijuana Physical Exam ED Exam Exam: General: alert and oriented, mood is depressed and affect normal Speech: normal, no aphasia or dysarthria Cranial nerves: CN2-12 in tact Peripheral exam: motor and sensation normal, reflexes normal, no pronator drift, normal finger to nose Gait: normal with normal Romberg and tandem gait (walked to bathroom) Constitutional:?Pt is oriented to person, place, and time. Pt appears well-developed and well-nourished. GCS 15, NIH scale is 0 HENT: Head: Normocephalic and atraumatic. Mouth/Throat: Oropharynx is clear and moist. No tongue bites or mucosal bites/ lesions noted, uvula is midline, tongue midline No hematomas or lacerations or abrasions to face or scalp OP clear, no blood, no malocclusion, dentition intact Nares clear, no nasal septal hematoma TMs clear, no hemotympanum Midface stable Eyes:?Conjunctivae and EOM are normal. Pupils are equal, round, and reactive to light. Neck: C-spine midline nontender, no step-offs of entire spine Cardiovascular:?Normal rate, regular rhythm and normal heart sounds. Pulmonary/Chest:?Effort normal and breath sounds normal. No respiratory distress. He has no wheezes. CTA bilaterally Abdominal:?Soft. Bowel sounds are normal. Pt exhibits no distension. There is no tenderness. Musculoskeletal: No bony tenderness to extremities, no deformities, full ROM extremities Chest wall stable Pelvis stable and non-tender No vertebral TTP and spine without stepoffs Neurological:?Pt is alert and oriented to person, place, and time. Moving all extremities willfully, able to wiggle all fingers and toes Alert and oriented x 3 Sensation grossly intact Skin:?Skin is warm and dry. No abrasions, no lacerations Psychiatric: Behavior is appropriate for situation Nursing note and vitals reviewed. Vital Signs: Vital Signs - 24 hr 05/02/25 20:48 05/02/25 22:06 Temperature 98.7 F Pulse Rate 78 76 Respiratory Rate 15 16 Blood Pressure 145/82 H 141/88 H Pulse Oximetry 98 99 Oxygen Delivery Method Room Air Room Air BMI result Body Mass Index 37.0 Medications Administered Discontinued Medications Generic Name Dose Route Start Last Admin Trade Name Freq PRN Reason Stop Dose Admin Sodium Chloride 1,000 mls @ 999 mls/hr 05/02/25 21:44 05/02/25 23:37 Ns IV 05/02/25 22:44 Infused .Q1H1M ONE Infusion Midazolam HCl 2 mg 05/02/25 21:44 05/02/25 21:54 Midazolam Hcl 2 Mg/2 Ml Vial IVPUSH 05/02/25 21:45 2 mg ONCE ONE Administration Medical Decision Making Medical Decision Making MDM Narrative: 19-year-old female with a history of anxiety presented to the ED for seizure-like activity witnessed by others. The episode occurred approximately one month after the unexpected of her brother. Per history and evaluation, the event is most consistent with a vasovagal episode secondary to acute hyperventilation during a panic attack. Notably, there was no postictal state, no evidence of head trauma, and no tongue biting or incontinence, making true seizure less likely. On exam, she was alert and oriented without focal neurological deficits. Screening labs (including glucose, CBC, CMP, and electrolytes) were unremarkable. Head CT was deferred due to low suspicion for intracranial pathology: no focal symptoms, no trauma, and no history suggestive of a mass or bleed. Neurology was not consulted as this was not felt to be a true seizure. Patient was treated with 2g of IV midazolam which alleviated her chest tightness and anxiety. No further episodes occurred in the ED. Antiepileptics were not initiated, nor are they recommended at this time. Patient was advised to follow up with her PCP for continued outpatient management of anxiety and for further evaluation if events recur. PCP may consider neurology referral. As a precautionary measure, patient was advised not to drive for 6 months unless cleared by her PCP or a neurologist per standard post-seizure safety protocol, despite this not being a confirmed seizure. She has declined psych consult. Final impression: Vasovagal syncope triggered by panic attack. Low likelihood of epileptic seizure. Differential Diagnosis Differential Diagnoses: The differential diagnosis associated with the presentation includes See [facility] Admission/Observation Consideration of admission/observation: Escalation of care including admission/observation considered Lab Data [facility] Lab Attestation statement: I reviewed the patient's lab results. 05/02/25 21:35 05/02/25 21:35 Labs: Lab Results 05/02/25 05/02/25 Range/Units 21:35 21:58 WBC 11.1 H (4.8-10.8) X10*3/uL RBC 4.39 (4.20-5.50) X10*6/uL Hgb 12.4 (12.0-16.0) g/dl Hct 36.8 L (37.0-47.0) % MCV 83.8 (80.0-98.0) fL MCH 28.2 (27.0-33.0) pg MCHC 33.7 (31.0-35.0) g/dl RDW 12.7 (11.0-16.0) % Plt Count 267 (160-400) X10*3/uL MPV 9.9 (9.4-12.3) fL Immature Gran % (Auto) 0.3 (0.0-0.4) % Neut % (Auto) 76.7 H (45-73) % Lymph % (Auto) 15.6 L (20-40) % [place] % (Auto) 6.7 (2-11) % Eos % (Auto) 0.5 (0-4) % Baso % (Auto) 0.2 (0-2) % Lymph # (Auto) 1.7 (1.2-4.9) X10*3/uL [place] # (Auto) 0.8 (0.1-1.2) X10*3/uL Eos # (Auto) 0.1 (0.0-0.4) X10*3/uL Baso # (Auto) 0.0 (0.0-0.2) X10*3/uL Abs Immat Gran (auto) 0.03 (0.00-0.03) X10*3/uL Absolute Neuts (auto) 8.5 H (2.0-8.3) x10*3/uL Absolute Nucleated RBC 0.000 (0.0-0.012) X10*3/uL Nucleated RBC % (auto) 0.0 (0.0-0.2) /100WBC Sodium 142 (135-145) mmol/L Potassium 3.8 (3.3-5.1) mmol/L Chloride 109 H (96-108) mmol/L Carbon Dioxide 24 (22-29) mmol/L Anion Gap 13 (12-20) BUN 9 (9-16) mg/dL Creatinine 0.69 (0.5-1.4) mg/dL Estim Creat Clear Calc 135.9 Estimated GFR > 60 Random Glucose 83 (60-115) mg/dL Calcium 8.9 D (8.4-10.2) mg/dL Magnesium 2.0 (1.6-2.6) mg/dL Total Bilirubin 0.5 (0.0-1.0) mg/dL AST 17 (5-31) U/L ALT 14 (0-31) U/L Alkaline Phosphatase 71 (39-117) U/L Total Protein 6.7 (6.5-8.0) g/dL Albumin 4.2 (3.5-5.0) g/dL Beta HCG, Quant < 2 mIU/mL Urine Color Yellow Urine Appearance Clear Urine pH 6.5 (5.0-9.0) Ur Specific [place] <= 1.005 (1.005-1.025) Urine Protein Negative (Neg-Trace) mg/dL Urine Glucose (UA) Negative (Negative) mg/dL Urine Ketones Negative (Negative) mg/dL Urine Blood Negative (Negative) Urine Nitrite Negative (Negative) Ur Leukocyte Esterase Moderate (2+) H (Negative) Urine RBC 0-2 (0-2) /HPF Urine WBC 21-50 H (0-5) /HPF Ur Squamous Epith Cells 6-10 (0-2) /HPF Urine Bacteria 1+ (None Seen) Hyaline Casts 0-2 (0-2) /LPF Urine Opiates Screen Not Detected (Not Detect) Ur Buprenorphine Scrn Not Detected (Not Detect) ng/mL Ur Oxycodone Screen Not Detected (Not Detect) ng/mL Urine Methadone Screen Not Detected (Not Detect) ng/mL Urine Fentanyl Screen Not Detected (Not Detect) Ur Barbiturates Screen Not Detected (Not Detect) Ur Phencyclidine Scrn Not Detected (Not Detect) Ur Amphetamines Screen Not Detected (Not Detect) U Benzodiazepines Scrn Not Detected (Not Detect) Urine Cocaine Screen Not Detected (Not Detect) U Marijuana (THC) Screen Not Detected (Not Detect) Independent Historian Clinical information obtained from an independent historian. History obtained from or confirmed by: Parent and Other (boyfriend) Prescription Management I considered prescription management with: Other Chronic Conditions Patient?s care impacted by: Other (anxiety) Social Determinants Patient?s care significantly limited by Social Determinants of Health including: Other Social Determinant of Health Discharge Plan Discharge Clinical Impression: Seizure-like activity, Panic attack Patient Disposition: Home, Self-Care Instructions: Panic Attack (ED) Additional Instructions: You were seen in the emergency department status post a panic attack that resulted in seizure-like activity. As you have no tongue biting and no wedding of yourself otherwise and recalling events not likely to be a true seizure. It is recommended that you follow up outpatient with Neurology as well as your primary care provider. It is recommended that you do not drive until cleared otherwise. He had lab work done today that is reassuring although your urine shows slight evidence for potential infection you have declined any symptoms we will still reflex to culture to see if there is any your pathogen. You were given an anxiolytic while here which resolved your chest pain completely. I do hope you feel better soon continue to find a therapist that works for you see handouts for additional details Prescriptions: No Action omeprazole 40 mg capsule,delayed release(DR/EC) 40 mg PO DAILY Qty: 14 0RF tranexamic acid 650 mg tablet 1,300 mg PO TID 5 Days Qty: 30 0RF sulfamethoxazole-trimethoprim [Bactrim DS] 800-160 mg tablet 1 tab PO BID 7 Days Qty: 14 0RF Referrals: [facility] [Provider Group] Referral Note: anxiety/ panic attacks [facility] [Provider Group] Interventions: ED Discharge Assessment Last Done: 05/02/25 23:38 Discharge Date/Time: 05/02/25 23:39 Print Language: Telugu
[2025-05-02 21:41] LABS: MANUAL DIFF FLAG NO
[2025-05-02 21:47] LABS: Hematocrit 36.8 % (37.0-47.0); Hemoglobin 12.4 g/dl (12.0-16.0); Imm Gran Abs Auto 0.03 X10*3/uL (0.00-0.03); Imm Gran Pct Auto 0.3 % (0.0-0.4); Lymphocytes Absolute Auto 1.7 X10*3/uL (1.2-4.9); Mean Corpuscular HGB Conc 33.7 g/dl (31.0-35.0); Mean Corpuscular Hemoglobin 28.2 pg (27.0-33.0); Mean Corpuscular Volume 83.8 fL (80.0-98.0); NRBC Abs Auto 0.000 X10*3/uL (0.0-0.012); NRBC Pct Auto 0.0 /100WBC (0.0-0.2); Platelet Count 267 X10*3/uL (160-400); Red Blood Count 4.39 X10*6/uL (4.20-5.50); White Blood Count 11.1 X10*3/uL (4.8-10.8)
--- NOTE | 2025-05-02 21:50 | PC.NURSE ---
pt ambulatory to bathroom with steady gait and given urine cup at this time, pt offers no complaints
[2025-05-02 22:03] LABS: Anion Gap 13 (12-20)
[2025-05-02 22:06] VITALS: BP 141/88; PULSE 76; RESP 16; O2SAT 99
[2025-05-02 22:06] LABS: Alanine Aminotransferase 14 U/L (0-31); Albumin Level 4.2 g/dL (3.5-5.0); Alkaline Phosphatase 71 U/L (39-117); Aspartate Amino Transferase 17 U/L (5-31); Blood Urea Nitrogen 9 mg/dL (9-16); Calcium 8.9 mg/dL (8.4-10.2); Carbon Dioxide 24 mmol/L (22-29); Chloride 109 mmol/L (96-108); Creatinine Clr Calc Pharmacy 135.9; Estimated Glomerular Filt Rate > 60; Magnesium 2.0 mg/dL (1.6-2.6); Potassium 3.8 mmol/L (3.3-5.1); Sodium 142 mmol/L (135-145); Total Protein 6.7 g/dL (6.5-8.0)
[2025-05-02 22:07] LABS: Appearance Urine Clear; Glucose Urine UA Negative (Negative); PH 6.5 (5.0-9.0); Specific Gravity - Urine <= 1.005 (1.005-1.025); UMIC TRIGGER UACC YES
[2025-05-02 22:14] LABS: UACC Culture Trigger YES
[2025-05-02 22:16] LABS: Cannabinoid Screen Urine Not Detected (Not Detect)
[2025-05-02 23:38] VITALS: BP 138/84; PULSE 88; RESP 16; TEMP 37; O2SAT 99
== END 2025-05-02 23:39 | disposition home or self-care (01) ==
PROVIDERS: Physician Assistant Medical; Emergency Provider Emergency Medicine Emergency Medical Services
DX: R56.9 Unspecified convulsions (principal); F41.0 Panic disorder [episodic paroxysmal anxiety]; F43.22 Adjustment disorder with anxiety; Z72.89 Other problems related to lifestyle; Z63.4 Disappearance and death of family member; Z79.899 Other long term (current) drug therapy
CPT/HCPCS: 36415; 71046; 80053; 80307; 81001; 83735; 84702; 85025; 87086; 93005; 96361; 96374; 99285; J2250

== ENCOUNTER → 2025-05-02 21:22 | Outpatient (BNV) | payer SELFPAY | PROVIDERS: Emergency Provider Emergency Medicine Emergency Medical Services; Visit Provider Internal Medicine Cardiovascular Disease | DX: R56.9 Unspecified convulsions (principal) | CPT/HCPCS: 93010 ==

== ENCOUNTER → 2025-05-02 21:45 | Outpatient (BNV) | payer SELFPAY | PROVIDERS: Emergency Provider Emergency Medicine Emergency Medical Services; Visit Provider Radiology Diagnostic Radiology | DX: R07.89 Other chest pain (principal) | CPT/HCPCS: 71046 ==

== ENCOUNTER 2025-05-18 11:12 | Outpatient (AMB) | payer OTHER, SELFPAY ==
[2025-05-18 11:16] VITALS: BP 112/64; PULSE 64; O2SAT 99; BMI 35.9
--- NOTE | 2025-05-18 11:16 | A.OFFVIS_ITS ---
Vital Signs 05/18/25 11:16 Height 5 ft 2 in Weight 196 lb 2 oz BMI 35.9 BP 112/64 Blood Pressure Location Rt brachial Position Sitting Pulse 64 Pulse Source Pulse Oximeter Pulse Oximetry (%) 99 Oxygen Delivery Method Room Air Intake Visit Reasons: [id number](Pt has new card will bring tomorrow) Intake Note: Seizures [employer] Aide Required: No Accompanied by: Self / Same As Patient Allergies amoxicillin (AMOXICILLIN) Allergy (Unknown, Verified 05/18/25 11:21) HIVES kiwi (KIWI) Allergy (Unknown, Verified 05/18/25 11:21) SWELLING Medication List - Last Reconciled 05/18/25 by Sandy Kirkland MD citalopram 10 mg PO DAILY HPI Comments Details: 19y/o female comes for evaluation of episodes of passing out.'She lost her brother in March 2025 and since then her anxiety worsened .Last week- she visited her brothers grave and came back home to do an photobook ,did not feel good , went to rest room , started hyperventilating , slumped down and passed out for few minutes No jerky movements.No post event confusion, no tongue biting or urinary incontinence .she was seen at ER and treated with midazolam for chest tightness . she had a milder episode but did not pass out later in the week. 5 years ago she had similar episode when her uncle passed . she does not remember which ER she went to. No fh/o seizures, no h/o head injury . [facility] Medical History Syncope Anxiety Social History Alcohol intake: current Substance Use Type: Marijuana Physical Exam Vital Signs: Last Vital Signs Pulse 64 05/18/25 11:16 BP 112/64 05/18/25 11:16 Pulse Ox 99 05/18/25 11:16 Oxygen Delivery Method Room Air 05/18/25 11:16 BMI result Body Mass Index 35.9 Const General: cooperative, healthy appearing, comfortable and anxious Nutritional Appearance: obese Orientation/consciousness: patient oriented x3 Eyes Pupils: Equal, round and reactive pupils present Neuro General: patient oriented x3, gait normal, tone normal, moves all extremities and no focal motor deficits Cranial nerves: Yes Facial sensation intact/muscles of mastication intact, Yes Equal, round and reactive pupils present, Yes Bilaterally intact EOM present, Yes Nystagmus not present, Yes Normal facial strength present, Yes Midline tongue present and Yes Ability to bilaterally elevate shoulders present Cognition (Neuro): normal cognition Gait exam (Neuro): Normal gait present Motor exam (neuro): 5/5 motor strength present throughout, no tremor noted and Normal motor muscle tone present throughout Deep tendon reflexes (DTR's): Right triceps reflex intensity grade: 2+, Left triceps reflex intensity grade: 2+, Rt Biceps (C5, C6): 2+, Left biceps reflex intensity grade: 2+, Right brachioradialis reflex intensity grade: 2+, Left brachioradialis reflex intensity grade: 2+, Right patellar reflex intensity grade: 2+ and Left patellar reflex intensity grade: 2+ Coordination: [id number] test normal Assessment & Plan Assessment & Plan (1) Syncope: Comment: likely vasovagal following hyperventilation Code(s): R55 - Syncope and collapse Category: Medical Qualifiers: Syncope type: vasovagal syncope Qualified Code(s): R55 - Syncope and collapse Plan The episodes are likely related to panic attacks and hyperventilation I will evaluate her with EEG I will trial her on citalopram 10 mg qd and encourgaed he rto seek Grief counseling. Orders: Orders EEG electroencephalogram Today R55 - Syncope and collapse Medications: New citalopram 10 mg PO DAILY 30 tabs 6RF Coding Level of Care Code New Pt Level 4 (68595) Diagnoses Vasovagal syncope R55 Syncope type: vasovagal syncope
--- OUTSIDE RECORDS SUMMARY | 2025-05-18 12:12 | XMS_ITS | Clinical Summary ---
Author Organization [facility] Address [address] [place] [address] Phone Care Team Providers Care Pharmacist In Charge Owner Name Role Phone Physician, No Pcp Primary Care Provider Unavaila ble Allergies Active Allergy Reactions Criticality Noted Date Comments Amoxicillin Swelling 03/08/2025 Medications No known medications Active Problems No known active problems Encounters Date Type Department Care Team Description 03/08/2025 11:05 AM EDT - 03/08/2025 1:22 PM EDT Emergency [facility] Emergency [address] [place] [address] Gastroesophageal reflux disease, unspecified whether [...] and culture (03/08/2025 12:03 PM EDT) Specific [place] Urine 1.020 1.003 - 1.030 LAB URINALYSIS - AUTOMATED METHOD 03/08/2025 12:44 PM EDT [facility] pH, Urine 7.5 5.0 - 8.0 pH LAB URINALYSIS - AUTOMATED METHOD 03/08/2025 12:44 PM EDT [facility] Leukocytes, Urine Trace(A) Negative LAB URINALYSIS - AUTOMATED METHOD 03/08/2025 12:44 PM EDT [facility] Nitrite, Urine Negative Negative LAB URINALYSIS - AUTOMATED METHOD 03/08/2025 12:44 PM EDT [facility] Protein, Urine Negative <=Trace mg/dL LAB URINALYSIS - AUTOMATED METHOD 03/08/2025 12:44 PM [facility] Glucose, Urine Negative Negative mg/dL LAB URINALYSIS - AUTOMATED METHOD 03/08/2025 12:44 PM [facility] Ketones, Urine Negative Negative mg/dL LAB URINALYSIS - AUTOMATED METHOD 03/08/2025 12:44 PM [facility] Urobilinogen, Urine 1.0 0.2 - 1.0 mg/dL LAB URINALYSIS - AUTOMATED METHOD 03/08/2025 12:44 PM [facility] Bilirubin, Urine Negative Negative LAB URINALYSIS - AUTOMATED METHOD 03/08/2025 12:44 PM [facility] Blood, Urine Negative Negative LAB URINALYSIS - AUTOMATED METHOD 03/08/2025 12:44 PM [facility] RBC, Urine 1.4 0 - 4 /HPF LAB URINALYSIS - AUTOMATED METHOD 03/08/2025 12:44 PM [facility] WBC, Urine 3.8 0 - 4 /HPF LAB URINALYSIS - AUTOMATED METHOD 03/08/2025 12:44 PM [facility] Squamous Epithelial, Urine >100(H) 0 - 60 /LPF LAB URINALYSIS - AUTOMATED METHOD 03/08/2025 12:44 PM [facility] Bacteria, Urine Few(A) Negative /HPF LAB URINALYSIS - AUTOMATED METHOD 03/08/2025 12:44 PM [facility] Hyaline Casts, Urine 0.4 0 - 3 /LPF LAB URINALYSIS - AUTOMATED METHOD 03/08/2025 12:44 PM [facility] Urine Urine specimen obtained by clean catch procedure / Unknown Non-blood Collection / Unknown 03/08/2025 12:03 PM EDT 03/08/2025 12:28 PM EDT us Lizett DUOMNT LAB URINE ORDERABLES Final Result Performing Organization Address [facility]/ZIP Co de Phone Number [facility] [address] [place] [address], [place] [phone] * Yu urine culture tube (03/08/2025 12:03 PM EDT) Extra Tube Hold for add-ons. 03/08/2025 2:01 PM EDT [facility] Comment:Auto resulted. Urine Urine specimen obtained by clean catch procedure / Unknown Non-blood Collection / Unknown 03/08/2025 12:03 PM EDT 03/08/2025 12:28 PM EDT Lizett DUMONT LAB URINE ORDERABLES Final Result Performing Organization Address [facility] Co de Phone Number [facility] [address] [place] [address], [place] [phone] * Culture urine (03/08/2025 12:03 PM EDT) Pathologist [facility] Culture, Urine 10,000-49,000 CFU/mL Mixed urogenital jazz, no uropathogens present. Suggest repeat specimen if clinically indicated. 03/09/2025 10:30 AM EDT [facility] Urine Urine specimen obtained by clean catch procedure / Unknown Non-blood Collection / Unknown 03/08/2025 12:03 PM EDT 03/08/2025 12:44 PM EDT Lizett DUMONT LAB MICROBIOLOGY - GENERAL ORDERABLES Final Result Performing Organization Address City/[facility]/ZIP Co de Phone Number [facility] [address] [place] [address], [place] [phone] * CBC auto differential (03/08/2025 11:08 AM EDT) WBC 7.8 4.8 - 10.8 K/[facility] LAB HEMETOLOGY METHOD 03/08/2025 11:35 AM [facility] RBC 4.60 3.80 - 4.80 M/mcL LAB HEMETOLOGY METHOD 03/08/2025 11:35 AM [facility] Hemoglobin 12.8 11.5 - 16.0 g/dL LAB HEMETOLOGY METHOD 03/08/2025 11:35 AM [facility] Hematocrit 40.0 35.0 - 47.0 % LAB HEMETOLOGY METHOD 03/08/2025 11:35 AM [facility] MCV 87.3 79.0 - 98.0 FL LAB HEMETOLOGY METHOD 03/08/2025 11:35 AM [facility] MCH 27.9 27.0 - 32.0 pcg LAB HEMETOLOGY METHOD 03/08/2025 11:35 AM [facility] MCHC 32.0 32.0 - 37.0 g/dL LAB HEMETOLOGY METHOD 03/08/2025 11:35 AM [facility] RDW 13.2 11.0 - 15.0 % LAB HEMETOLOGY METHOD 03/08/2025 11:35 AM [facility] Platelets 272 130 - 400 K/mcL LAB HEMETOLOGY METHOD 03/08/2025 11:35 AM [facility] MPV 10.1 7.0 - 11.0 FL LAB HEMETOLOGY METHOD 03/08/2025 11:35 AM [facility] NRBC 0.0 <1.0 % LAB HEMETOLOGY METHOD 03/08/2025 11:35 AM [facility] NRBC Absolute 0.00 <0.10 K/mcL LAB HEMETOLOGY METHOD 03/08/2025 11:35 AM [facility] Neutrophils Relative 69.5 % LAB HEMETOLOGY METHOD 03/08/2025 11:35 AM [facility] Lymphocytes Relative 22.3 % LAB HEMETOLOGY METHOD 03/08/2025 11:35 AM [facility] Monocytes Relative 6.1 % LAB HEMETOLOGY METHOD 03/08/2025 11:35 AM [facility] Eosinophils Relative 1.4 % LAB HEMETOLOGY METHOD 03/08/2025 11:35 AM [facility] Basophils Relative 0.3 % LAB HEMETOLOGY METHOD 03/08/2025 11:35 AM [facility] Immature Granulocytes Relative 0.4 % LAB HEMETOLOGY METHOD 03/08/2025 11:35 AM [facility] Neutrophils Absolute 5.44 1.50 - 7.00 K/mcL LAB HEMETOLOGY METHOD 03/08/2025 11:35 AM [facility] Lymphocytes Absolute 1.74 1.00 - 5.00 K/mcL LAB HEMETOLOGY METHOD 03/08/2025 11:35 AM [facility] Monocytes Absolute 0.48 0.20 - 1.00 K/mcL LAB HEMETOLOGY METHOD 03/08/2025 11:35 AM [facility] Eosinophils Absolute 0.11 0.00 - 0.50 K/mcL LAB HEMETOLOGY METHOD 03/08/2025 11:35 AM [facility] Basophils Absolute 0.02 0.00 - 0.20 K/mcL LAB HEMETOLOGY METHOD 03/08/2025 11:35 AM [facility] Immature Granulocytes Absolute 0.03 0.00 - 0.03 K/mcL LAB HEMETOLOGY METHOD 03/08/2025 11:35 AM [facility] Blood Venous blood specimen / Unknown Venipuncture / Unknown 03/08/2025 11:08 AM EDT 03/08/2025 11:26 AM EDT us Heath Painting DO LAB BLOOD ORDERABLES Final Result Performing Organization Address City/[facility]/ZIP Co de Phone Number [facility] [address] [place] [address], [place] [phone] * POC , urine manually resulted (03/08/2025 11:08 AM EDT) HCG, Ur POC Negative Negative POC hCG Int QC Pass? Yes Yes Urine Urine specimen obtained by clean catch procedure / Unknown 03/08/2025 11:08 AM EDT us Heath Painting DO POINT OF CARE TEST ENTER/ED IT ORDERABLES Final Result * Lipase (03/08/2025 11:08 AM EDT) Pathologist [facility] Lipase 21 13 - 75 unit/L LAB CHEMISTRY METHOD 03/08/2025 11:55 AM EDT [facility] Blood Venous blood specimen / Unknown Venipuncture / Unknown 03/08/2025 11:08 AM EDT 03/08/2025 11:26 AM EDT us Heath Painting DO LAB BLOOD ORDERABLES Final Result Performing Organization Address City/[facility]/ZIP Co de Phone Number [facility] [address] [place] [address], [place] [phone] * (ABNORMAL) Comprehensive metabolic panel (03/08/2025 11:08 AM EDT) [facility] Sodium 138 133 - 145 mmol/L LAB CHEMISTRY METHOD 03/08/2025 12:02 PM EDT [facility] Potassium 4.2 3.5 - 5.5 mmol/L LAB CHEMISTRY METHOD 03/08/2025 12:02 PM EDT [facility] Chloride 106 96 - 110 mmol/L LAB CHEMISTRY METHOD 03/08/2025 12:02 PM EDT [facility] CO2 29 21 - 32 mmol/L LAB CHEMISTRY METHOD 03/08/2025 12:02 PM [facility] Anion Gap 3 3 - 11 LAB CHEMISTRY METHOD 03/08/2025 12:02 PM [facility] Glucose 105(H) 70 - 100 mg/dL LAB CHEMISTRY METHOD 03/08/2025 12:02 PM [facility] BUN 5 5 - 25 mg/dL LAB CHEMISTRY METHOD 03/08/2025 12:02 PM [facility] Creatinine 0.73 0.50 - 1.10 mg/dL LAB CHEMISTRY METHOD 03/08/2025 12:02 PM [facility] eGFR 120 >=60 mL/min/1. 73m2 LAB CHEMISTRY METHOD 03/08/2025 12:02 PM [facility] Comment:Calculation based on the Chronic Kidney Disease Epidemiology Collaboration (CKD-EPI) equation refit without adjustment for race. BUN/Creatinine Ratio 6.8 LAB CHEMISTRY METHOD 03/08/2025 12:02 PM [facility] Calcium 9.6 8.5 - 10.5 mg/dL LAB CHEMISTRY METHOD 03/08/2025 12:02 [facility] AST (SGOT) 13 10 - 42 unit/L LAB CHEMISTRY METHOD 03/08/2025 12:02 [facility] ALT (SGPT) 18 10 - 60 unit/L LAB CHEMISTRY METHOD 03/08/2025 12:02 PM [facility] Alkaline Phosphatase 91 42 - 121 unit/L LAB CHEMISTRY METHOD 03/08/2025 12:02 PM [facility] Total Protein 7.3 6.0 - 8.0 g/dL LAB CHEMISTRY METHOD 03/08/2025 12:02 PM [facility] Albumin 3.8 3.2 - 5.0 g/dL LAB CHEMISTRY METHOD 03/08/2025 12:02 PM [facility] Total Bilirubin 0.4 0.0 - 1.4 mg/dL LAB CHEMISTRY METHOD 03/08/2025 12:02 PM EDT [facility] Blood Venous blood specimen / Unknown Venipuncture / Unknown 03/08/2025 11:08 AM EDT 03/08/2025 11:26 AM EDT us Heath Painting DO LAB BLOOD ORDERABLES Final Result [facility] [address] [place] [address], [place] [phone] from Last 3 Months Insurance MEDICAID - [place] Care Teams Pharmacist In Charge Owner Relationship Specialty Start Date End Date Physician, No Pcp PCP - General 03/08/25
--- OUTSIDE RECORDS SUMMARY | 2025-05-18 12:12 | XMS_ITS | Clinical Summary ---
Author Organization [facility] Address [address] [place] [id number] Phone Care Team Providers Care Rug Hooker Name Role Phone Unavailable Primary Care Provider Unavailabl e Allergies Active Allergy Reactions Criticality Noted Date Comments Amoxicillin Medications medroxyPROGESTER one Acetate (DEPO-PROVERA IM) Inject into the muscle. Active Active Problems Problem Noted Date Diagnosed Date Right knee sprain 02/11/2022 Assessment & Plan (02/11/2022 8:31 AM EDT): Tripped on step yesterday, seen in the ER. She says xrays normal. Pankaj wrap, crutches as planned. Call if not resolved by two weeks, would refer to Orthopedics then. Personal history of COVID-19 02/11/2022 Overview (02/11/2022): Spring 2020 and 2020 Assessment & Plan (02/11/2022 8:36 AM EDT): Spring 2020 and 2020, last time mild Depo-Provera contraceptive status 02/11/2022 Overview (02/11/2022): Via Regional Operations Director Assessment & Plan (02/11/2022 8:45 AM EDT): On Depo via Regional Operations Director. Encouraged condom use every time. Seasonal allergic rhinitis due to pollen 019 Overview (10/17/2020): Tree pollen clarritin Pediatric body mass index (B AL) of greater than or equal to 95th percentile for age 0211/27/2016 Assessment & Plan (02/11/2022 8:44 AM EDT): Will check fasting labs. Encouraged regular activity, dietary changes. Assessment & Plan (09/07/2019 10:20 AM EST): Encouraged healthy eating and more regular vigorous physical activity Resolved Problems Problem Noted Date Diagnosed Date Resolved Date Adolescent , incidental 10/17/2020 02/11/2022 Overview (10/17/2020): Had on 10/13/2020. FU with IMITATION MARBLE MECHANIC in December 2020 and DEPO given with IMITATION MARBLE MECHANIC. Immunizations Immunization Administration Dates Next Due DTaP 01/31/2009, 5,05/25/2004,04/05,01/30/2004 H1N1 08/24/2009 HPV Vaccine 9 Valent 11/27/2016,10/17/2015,08/16 Hep A, ped/adol 08/05/2018,11/27/2016 Hep B, ped/adol 11/01/2004,2003,2003 Hib (PRP-T) 07/31/2005, 4,04/05/2004,01/29 IPV 01/31/2009, 5,04/05/2004,01/29 Influenza, injectable, quadrivalent 11/07,08/16/2015,07/11/2012,08/10 Influenza, injectable, quadr ivalent, preservative free 02/11/2022,10/17/2020,09/07/2019,08/05,06/20/2014 Influenza, injectable, triva lent, preservative free 07/31/2005,11/01/2004 MMR 01/29/2008,12/03/2004 Meningococcal Conj (Menactra) MCV4P 10/17/2020,1 10/16/2014 Pneumococcal Conjugate 07/31/2005,2003,04/05/2004,01/29 Tdap 08/16/2015 Varicella 01/29/2008,12/03/2004 Family History Medical History Relation Name Comments No Known Problems Brother 1 rhina No Known Problems Brother 2 Relation Name Status Comments Brother 1 rhina Alive Brother 2 Alive Father Alive healthy age: 40 Maternal Grandfather od Maternal Grandmother suicide Mother Alive anemia dpressio n age: 38 Other Alive Siblings: healt [id number] 1998,2001 Paternal Grandfather Alive Paternal Grandmother Alive [place] Social History Tobacco Use Types Packs/Day Years Used Date Smoking Tobacco: Never Smokeless Tobacco: Never Hunger/Food Answer Date Recorded In the last 12 months, did y ou or your family ever eat less than you felt you should because there wasn't enough money for food? No 02/11/2022 Stable Housing Answer Date Recorded Are you worried that in the next 2 months you may not have stable housing? No 02/11/2022 Transportation Concerns Answer Date Rec orded In the last 12 months, have you or your family ever had to go without healthcare because you didn't have a way to get there? No 02/11/2022 Hazards in Home Answer Date Recorded Think about the place you li ve. Do you have problems with any of the following? Pests (mice or roaches), mold, no/not working smoke detectors, water leaks, no window guards. No 2021 Financing Utilities Answer Date Recorde d In the last 12 months, has t he electric, gas, oil, or water company threatened to shut off your services in your home? No 02/11/2022 Safety at Home Answer Date Recorded Are you or your family worried about feeling saf e in your home? No 02/11/2022 Outside Support Answer Date Recorded Do you feel that you need mo re support from other people or programs to help you care for yourself or your family? No 02/11/2022 Understanding Health Concerns Answer Da te Recorded Do you need help understandi ng your or your child's healthcare needs (diagnosis, medications, plan, etc.)? No 02/11/2022 Financing Health Concerns Answer Date R ecorded In the last 12 months, was t here a time when your child needed to see a doctor or get medications or supplies but could not because of cost? No 02/11/2022 Missing School or Work Answer Date Michael rded Did you or your child miss s chool or work because of a health problem that could have been avoided? No 02/11/2022 Comments No Sex and Gender Information Value Date Recorded Sex Assigned at Not on file Legal Sex Female 6:21 PM EDT Gender Identity Not on file Sexual Orientation Not on file Last Filed Vital Signs Vital Sign Reading Time Taken Comments Blood Pressure 118/74 02/11/2022 8:18 AM EDT Pulse 71 01/05/2019 11:32 AM EDT Temperature 36.1 C (97 F) 09/07/2019 10:16 AM EST Respiratory Rate - - Oxygen Saturation 99% 01/05/2019 11:32 AM EDT Inhaled Oxygen Concentration - - Weight 97.5 kg (215 lb) 02/11/2022 8:18 AM EDT Height 165.1 cm (5' 5 ) 02/11/2022 8:18 AM EDT Body Mass Index 35.78 02/11/2022 8:18 AM EDT Plan of Treatment Health Maintenance Due Date Last Done Comments Men B Vaccine (1 of 2 - Standard) 2019 COVID-19 Vaccine (4 - 2023-2 5 season) 2024 08/21/2022, 04/03/2021, 03/13/2021 Influenza Vaccines (#1) 2025 02/12/20, 10/17/2020, 09/07/2019, Additional history exists DTaP,Tdap,and Td Vaccines (7 - Td or Tdap) 08/16/2025 08/16/2015, 01/31/2009, 07/31/2005, Additional history exists Hepatitis B Vaccines Completed 11/01/2004, 2003, 2003 HIB Vaccines Completed 07/31/2005, 05/07, 04/05/2004, Additional history exists Pneumococcal Vaccine Completed 07/31/2005, 05/25/2004, 04/05/2004, Additional history exists MMR Vaccines Completed 01/29/2008, 12/03/2004 Varicella Vaccines Completed 01/29/2008, 12/03/2004 IPV Vaccines Completed 01/31/2009, 10/07, 04/05/2004, Additional history exists HPV Vaccines Completed 11/27/2016, 10/06, 08/16/2015 Hepatitis A Vaccines Completed 08/05/2018, 11/27/19 17 Meningococcal Vaccine Completed 10/17/2020, 015 Procedures * Due to [place] Videof[employer] law, this organization might not be sharing sensitive test results. Procedure Name Priority Date/Time Associated Diagnosis Comments CHLAMYDIA AND GONORRHEA, AMPLIFIED Routine 02/11/2022 11:00 AM EDT Encounter for well adult exam with abnormal findings from Last 3 Months or Most Recently Relevant to Health Maintenance Results * Due to [place] Vide[employer] law, this organization might not be sharing sensitive test results. * Chlamydia and Gonorrhoea, Amplified (02/11/2022 11:00 AM EDT) Chlamydia Trachomatis, DNA Probe NEGATIVE (NEG) [facility] Comment: No Chlamydia Trachomatis RNA detected in this patient's sample (REFERENCE RANGE/NORMAL VALUE: NOT DETECTED) Note: This test uses inhalation therapist- mediated amplification method to detect rRNA from C. Trachomatis URINE GC AMP PROBE NEGATIVE (NEG) [facility] Comment: No Neisseria Gonorrhoeae RNA detected in this patient's sample (REFERENCE RANGE/NORMAL VALUE: NOT DETECTED) NOTE: This test uses inhalation therapist-mediated amplification method to detect rRNA from N.Gonorrhoeae. A negative result does not preclude infection. In the case of a negative urine result, testing of an endocervical(female) or urethral (male) specimen is recommended if there is high clinical suspicion of infection. Due to very high sensitivity of Nucleic Acid Amplification Test, false positive results may occur. Therefore, specimen handling is extremely important. In patients in whom the disease is unlikely, additional sample for testing should be considered after an initial positive result. The performance characteristics of this test have not been evaluated in children. The Aptima Combo2 assay is not intended for the evaluation of suspected sexual abuse or for other medico-legal indications. The ordering provider should assess if the patient had consensual sex without risk of sexual abuse. Consult the [facility] if needed. Contact phone number . Therapeutic failure or success cannot be determined with the Aptima Combo2 assay since nucleic acid may persist following appropriate antimicrobial therapy. The Centers for Disease Control and Prevention (CDC) recommends confirmatory retesting using culture or a different nucleic acid amplification test when positive results occur, if indicated. Testing performed or reported by [facility], a Service of [facility], [facility] [place] [address] Chapito Regan MD, Coal Crusher Operator [facility]# [id number] Urine (Urine) 02/11/2022 11: 00 AM EDT 02/11/2022 8:58 PM EDT Regla Valadez MD LAB MICROBIOLOGY - GENERAL OR DERABLES Final Result [facility] from Last 3 Months or Most Recently Relevant to Health Maintenance Insurance COMMERCIAL
== END 2025-05-18 12:03 | disposition home or self-care (01) ==
LOC: HO.HSMS 11:13
PROVIDERS: Visit Provider Psychiatry & Neurology Neurology
DX: R55 Syncope and collapse (principal)
CPT/HCPCS: 99204

== ENCOUNTER → 2025-05-18 11:12 | Outpatient (BNVA) | payer OTHER, SELFPAY | PROVIDERS: Visit Provider Psychiatry & Neurology Neurology | DX: R55 Syncope and collapse (principal) | CPT/HCPCS: 99202 ==

== ENCOUNTER 2025-06-08 19:25 | Emergency (ER) | payer OTHER, SELFPAY ==
--- NOTE | ~2025-06-08 | CT_ITS ---
CLINICAL HISTORY: seizure like activity, headache CT head without contrast Comparison: None provided Findings: No intra-axial mass, midline shift, hydrocephalus, or acute hemorrhage. No significant atrophy-like change or white matter disease. The visualized paranasal sinuses and mastoid air cells are normal. The orbits are within normal limits. No skull fracture. IMPRESSION: 1. No acute intracranial findings. This document has been electronically signed by: Chito Topete MD on 06/08/2025 21:56:32
[2025-06-08 19:35] VITALS: BP 156/80; PULSE 85; O2SAT 100
[2025-06-08 19:42] VITALS: BP 131/77; PULSE 68; RESP 16; TEMP 37.2; O2SAT 98; BMI 31.3
--- OUTSIDE RECORDS SUMMARY | 2025-06-08 20:07 | XMS_ITS | Encounter Summary ---
Author Organization [facility] Address [address] [place] [address] Phone Care Team Providers Care Code Machine Operator Name Role Phone Regla Valadez MD Primary Care Provider [phone] Encounter Details Date Type Department Care Team (Late st Contact Info) Description 02/22/2018 [facility]version [facility]counter [facility] [address] [address] Regla Valadez MD [address] [place] [address] Social History Tobacco Use Types Packs/Day Years Used Date Smoking Tobacco: Never Assessed Comments Unknown Sex and Gender Information Value Date Recorded Sex Assigned at Not on file Legal Sex Female 6:21 PM EDT Gender Identity Not on file Sexual Orientation Not on file documented as of this encounter Plan of Treatment Not on file documented as of this encounter Visit Diagnoses Not on filedocumented in this encounter Care Teams Code Machine Operator Relationship Specialty Start Date End Date Regla Valadez MD [address] [place] [address] PCP - General 02/11/18 12/13/24 documented as of this encounter
--- OUTSIDE RECORDS SUMMARY | 2025-06-08 20:07 | XMS_ITS | Clinical Summary ---
Author Organization [facility] Address [address] [place] [address] Phone Care Team Providers Care Top Steep Tender Name Role Phone Unavailable Primary Care Provider [...] Depo-Provera contraceptive status 02/11/2022 Overview (02/11/2022): Via Fulfillment Mail Clerk Assessment & Plan (02/11/2022 8:45 AM EDT): On Depo via Fulfillment Mail Clerk. Encouraged condom use every time. Seasonal allergic rhinitis due to pollen 019 Overview (10/17/2020): Tree pollen clarritin Pediatric body mass index (B NJ) of greater than or equal to 95th [...] Overview (10/17/2020): Had on 10/13/2020. FU with SUSPECT ARTIST SUPERVISOR in December 2020 and DEPO given with SUSPECT ARTIST SUPERVISOR. Immunizations Immunization Administration Dates Next Due DTaP [...] n age: 36 Other Alive Siblings: healt [id number] 1998,2001 Paternal Grandfather Alive Paternal Grandmother Alive [...] Completed 10/17/2020, 015 Procedures * Due to [place] [email or web address] law, this organization might not be sharing sensitive test results. Procedure Name Priority Date/Time Associated Diagnosis Comments CHLAMYDIA AND GONORRHEA, AMPLIFIED Routine 02/11/2022 11:00 AM EDT Encounter for well adult exam with abnormal findings from Last 3 Months or Most Recently Relevant to Health Maintenance Results * Due to [place] [email or web address].de law, this organization might not be sharing sensitive test results. * Chlamydia and Gonorrhoea, Amplified (02/11/2022 11:00 AM EDT) Chlamydia Trachomatis, DNA Probe NEGATIVE (NEG) [facility] Comment: No Chlamydia Trachomatis RNA detected in this patient's sample (REFERENCE RANGE/NORMAL VALUE: NOT DETECTED) Note: This test uses bonbon cream warmer- mediated amplification method to detect rRNA from C. Trachomatis URINE GC AMP PROBE NEGATIVE (NEG) [facility] Comment: No Neisseria Gonorrhoeae RNA detected in this patient's sample (REFERENCE RANGE/NORMAL VALUE: NOT DETECTED) NOTE: This test uses bonbon cream warmer-mediated amplification method to detect rRNA from N.Gonorrhoeae. [...] without risk of sexual abuse. Consult the [facility] [place] [facility] if needed. Contact phone number . Therapeutic failure or success cannot be determined with the Aptima Combo2 assay since nucleic acid may persist following appropriate antimicrobial therapy. The Centers for Disease Control and Prevention (CDC) recommends confirmatory retesting using culture or a different nucleic acid amplification test when positive results occur, if indicated. Testing performed or reported by [facility], a Service of [facility] [place] [facility], [place] [address] Chapito Regan MD, Talent Recruiter [facility]# [id number] Urine (Urine) 02/11/2022 11: 00 AM EDT 02/11/2022 8:58 PM EDT Regla Valadez MD LAB MICROBIOLOGY - GENERAL OR DERABLES Final Result [facility] from Last 3 Months or Most Recently Relevant to Health Maintenance Insurance COMMERCIAL
--- OUTSIDE RECORDS SUMMARY | 2025-06-08 20:07 | XMS_ITS | Clinical Summary ---
Author Organization [facility] Address [address] [place] [address] Phone Care Team Providers Care Steam Turbine Operator Name Role Phone Physician, No Pcp Primary Care Provider Unavaila ble Allergies Active Allergy Reactions Criticality Noted Date Comments Amoxicillin Swelling 03/08/2025 Medications No known medications Active Problems No known active problems Encounters Date Type Department Care Team Description 03/08/2025 11:05 AM EDT - 03/08/2025 1:22 PM EDT Emergency [facility] Emergency [address] [place] [address] Gastroesophageal reflux disease, unspecified whether [...] Vaccine (1 of 2 - Standard) 2019 Depression Screening 10/06/2024 Cervical Cancer Screening: Pap Smear 2024 Annual Well Child Visit (3-21 years old) 03/08/2025 02/11/2022, 10/17/2020, 09/07/2019, Additional history exists Cholesterol Screening (Lipid Panel) 03/08/2025 HIV Screening 03/08/2025 Hepatitis C Screening 03/08/2025 Social Influencers of Health Screening 03/08/2025 COVID-19 Vaccine ( season) 2025 08/21/2022, 04/03/2021, 03/13/2021 Influenza Vaccine (#1) 2025 , 10/17/2020, 09/07/2019, [...] and culture (03/08/2025 12:03 PM EDT) Specific [place] Urine 1.020 1.003 - 1.030 LAB URINALYSIS - AUTOMATED METHOD 03/08/2025 12:44 PM EDT [facility] pH, Urine 7.5 5.0 - 8.0 pH LAB URINALYSIS - AUTOMATED METHOD 03/08/2025 12:44 PM EDT [facility] Leukocytes, Urine Trace(A) Negative LAB URINALYSIS - AUTOMATED METHOD 03/08/2025 12:44 PM EDT [facility] Nitrite, Urine Negative Negative LAB URINALYSIS - AUTOMATED METHOD 03/08/2025 12:44 PM EDT [facility] Protein, Urine Negative <=Trace mg/dL LAB URINALYSIS - AUTOMATED METHOD 03/08/2025 12:44 PM [facility] Glucose, Urine Negative Negative mg/dL LAB URINALYSIS - AUTOMATED METHOD 03/08/2025 12:44 PM [facility] Ketones, Urine Negative Negative mg/dL LAB URINALYSIS - AUTOMATED METHOD 03/08/2025 12:44 PM [facility] Urobilinogen, Urine 1.0 0.2 - 1.0 mg/dL LAB URINALYSIS - AUTOMATED METHOD 03/08/2025 12:44 PM [facility] Bilirubin, Urine Negative Negative LAB URINALYSIS - AUTOMATED METHOD 03/08/2025 12:44 PM [facility] Blood, Urine Negative Negative LAB URINALYSIS - AUTOMATED METHOD 03/08/2025 12:44 PM [facility] RBC, Urine 1.4 0 - 4 /HPF LAB URINALYSIS - AUTOMATED METHOD 03/08/2025 12:44 PM [facility] WBC, Urine 3.8 0 - 4 /HPF LAB URINALYSIS - AUTOMATED METHOD 03/08/2025 12:44 PM [facility] Squamous Epithelial, Urine >100(H) 0 - 60 /LPF LAB URINALYSIS - AUTOMATED METHOD 03/08/2025 12:44 PM [facility] Bacteria, Urine Few(A) Negative /HPF LAB URINALYSIS - AUTOMATED METHOD 03/08/2025 12:44 PM [facility] Hyaline Casts, Urine 0.4 0 - 3 /LPF LAB URINALYSIS - AUTOMATED METHOD 03/08/2025 12:44 PM [facility] Urine Urine specimen obtained by clean catch procedure / Unknown Non-blood Collection / Unknown 03/08/2025 12:03 PM EDT 03/08/2025 12:28 PM EDT us Lizett DUMONT LAB URINE ORDERABLES Final Result Performing Organization Address [facility]/ZIP Co de Phone Number [facility] [address] [place] [address], [place] [phone] * Yu urine culture tube (03/08/2025 12:03 PM EDT) Extra Tube Hold for add-ons. 03/08/2025 2:01 PM EDT [facility] Comment:Auto resulted. Urine Urine specimen obtained by clean catch procedure / Unknown Non-blood Collection / Unknown 03/08/2025 12:03 PM EDT 03/08/2025 12:28 PM EDT Lizett DUMONT LAB URINE ORDERABLES Final Result Performing Organization Address [facility] Co de Phone Number [facility] [address] [place] [address], [place] [phone] * Culture urine (03/08/2025 12:03 PM EDT) Pathologist [facility] Culture, Urine 10,000-49,000 CFU/mL Mixed urogenital jazz, no uropathogens present. Suggest repeat specimen if clinically indicated. 03/09/2025 10:30 AM EDT [facility] Urine Urine specimen obtained by clean catch procedure / Unknown Non-blood Collection / Unknown 03/08/2025 12:03 PM EDT 03/08/2025 12:44 PM EDT Lizett DUMONT LAB MICROBIOLOGY - GENERAL ORDERABLES Final Result Performing Organization Address City/[facility]/ZIP Co de Phone Number [facility] [address] [place] [address], [place] [phone] * CBC auto differential (03/08/2025 11:08 AM EDT) WBC 7.8 4.8 - 10.8 K/[facility] LAB HEMETOLOGY METHOD 03/08/2025 11:35 AM [facility] RBC 4.60 3.80 - 4.80 M/mcL LAB HEMETOLOGY METHOD 03/08/2025 11:35 AM [facility] Hemoglobin 12.8 11.5 - 16.0 g/dL LAB HEMETOLOGY METHOD 03/08/2025 11:35 AM [facility] Hematocrit 40.0 35.0 - 47.0 % LAB HEMETOLOGY METHOD 03/08/2025 11:35 AM [facility] MCV 87.3 79.0 - 98.0 FL LAB HEMETOLOGY METHOD 03/08/2025 11:35 AM [facility] MCH 27.9 27.0 - 32.0 pcg LAB HEMETOLOGY METHOD 03/08/2025 11:35 AM [facility] MCHC 32.0 32.0 - 37.0 g/dL LAB HEMETOLOGY METHOD 03/08/2025 11:35 AM [facility] RDW 13.2 11.0 - 15.0 % LAB HEMETOLOGY METHOD 03/08/2025 11:35 AM [facility] Platelets 272 130 - 400 K/mcL LAB HEMETOLOGY METHOD 03/08/2025 11:35 AM [facility] MPV 10.1 7.0 - 11.0 FL LAB HEMETOLOGY METHOD 03/08/2025 11:35 AM [facility] NRBC 0.0 <1.0 % LAB HEMETOLOGY METHOD 03/08/2025 11:35 AM [facility] NRBC Absolute 0.00 <0.10 K/mcL LAB HEMETOLOGY METHOD 03/08/2025 11:35 AM [facility] Neutrophils Relative 69.5 % LAB HEMETOLOGY METHOD 03/08/2025 11:35 AM [facility] Lymphocytes Relative 22.3 % LAB HEMETOLOGY METHOD 03/08/2025 11:35 AM [facility] Monocytes Relative 6.1 % LAB HEMETOLOGY METHOD 03/08/2025 11:35 AM [facility] Eosinophils Relative 1.4 % LAB HEMETOLOGY METHOD 03/08/2025 11:35 AM [facility] Basophils Relative 0.3 % LAB HEMETOLOGY METHOD 03/08/2025 11:35 AM [facility] Immature Granulocytes Relative 0.4 % LAB HEMETOLOGY METHOD 03/08/2025 11:35 AM [facility] Neutrophils Absolute 5.44 1.50 - 7.00 K/mcL LAB HEMETOLOGY METHOD 03/08/2025 11:35 AM [facility] Lymphocytes Absolute 1.74 1.00 - 5.00 K/mcL LAB HEMETOLOGY METHOD 03/08/2025 11:35 AM [facility] Monocytes Absolute 0.48 0.20 - 1.00 K/mcL LAB HEMETOLOGY METHOD 03/08/2025 11:35 AM [facility] Eosinophils Absolute 0.11 0.00 - 0.50 K/mcL LAB HEMETOLOGY METHOD 03/08/2025 11:35 AM [facility] Basophils Absolute 0.02 0.00 - 0.20 K/mcL LAB HEMETOLOGY METHOD 03/08/2025 11:35 AM [facility] Immature Granulocytes Absolute 0.03 0.00 - 0.03 K/mcL LAB HEMETOLOGY METHOD 03/08/2025 11:35 AM [facility] Blood Venous blood specimen / Unknown Venipuncture / Unknown 03/08/2025 11:08 AM EDT 03/08/2025 11:26 AM EDT us Heath Painting DO LAB BLOOD ORDERABLES Final Result Performing Organization Address City/[facility]/ZIP Co de Phone Number [facility] [address] [place] [address], [place] [phone] * POC , urine manually resulted (03/08/2025 11:08 AM EDT) HCG, Ur POC Negative Negative POC hCG Int QC Pass? Yes Yes Urine Urine specimen obtained by clean catch procedure / Unknown 03/08/2025 11:08 AM EDT us Heath Painting DO POINT OF CARE TEST ENTER/ED IT ORDERABLES Final Result * Lipase (03/08/2025 11:08 AM EDT) Pathologist [facility] Lipase 21 13 - 75 unit/L LAB CHEMISTRY METHOD 03/08/2025 11:55 AM EDT [facility] Blood Venous blood specimen / Unknown Venipuncture / Unknown 03/08/2025 11:08 AM EDT 03/08/2025 11:26 AM EDT us Heath Painting DO LAB BLOOD ORDERABLES Final Result Performing Organization Address City/[facility]/ZIP Co de Phone Number [facility] [address] [place] [address], [place] [phone] * (ABNORMAL) Comprehensive metabolic panel (03/08/2025 11:08 AM EDT) [facility] Sodium 138 133 - 145 mmol/L LAB CHEMISTRY METHOD 03/08/2025 12:02 PM EDT [facility] Potassium 4.2 3.5 - 5.5 mmol/L LAB CHEMISTRY METHOD 03/08/2025 12:02 PM EDT [facility] Chloride 106 96 - 110 mmol/L LAB CHEMISTRY METHOD 03/08/2025 12:02 PM EDT [facility] CO2 29 21 - 32 mmol/L LAB CHEMISTRY METHOD 03/08/2025 12:02 PM [facility] Anion Gap 3 3 - 11 LAB CHEMISTRY METHOD 03/08/2025 12:02 PM [facility] Glucose 105(H) 70 - 100 mg/dL LAB CHEMISTRY METHOD 03/08/2025 12:02 PM [facility] BUN 5 5 - 25 mg/dL LAB CHEMISTRY METHOD 03/08/2025 12:02 PM [facility] Creatinine 0.73 0.50 - 1.10 mg/dL LAB CHEMISTRY METHOD 03/08/2025 12:02 PM [facility] eGFR 120 >=60 mL/min/1. 73m2 LAB CHEMISTRY METHOD 03/08/2025 12:02 PM [facility] Comment:Calculation based on the Chronic Kidney Disease Epidemiology Collaboration (CKD-EPI) equation refit without adjustment for race. BUN/Creatinine Ratio 6.8 LAB CHEMISTRY METHOD 03/08/2025 12:02 PM [facility] Calcium 9.6 8.5 - 10.5 mg/dL LAB CHEMISTRY METHOD 03/08/2025 12:02 [facility] AST (SGOT) 13 10 - 42 unit/L LAB CHEMISTRY METHOD 03/08/2025 12:02 [facility] ALT (SGPT) 18 10 - 60 unit/L LAB CHEMISTRY METHOD 03/08/2025 12:02 PM [facility] Alkaline Phosphatase 91 42 - 121 unit/L LAB CHEMISTRY METHOD 03/08/2025 12:02 PM [facility] Total Protein 7.3 6.0 - 8.0 g/dL LAB CHEMISTRY METHOD 03/08/2025 12:02 PM [facility] Albumin 3.8 3.2 - 5.0 g/dL LAB CHEMISTRY METHOD 03/08/2025 12:02 PM [facility] Total Bilirubin 0.4 0.0 - 1.4 mg/dL LAB CHEMISTRY METHOD 03/08/2025 12:02 PM EDT [facility] Blood Venous blood specimen / Unknown Venipuncture / Unknown 03/08/2025 11:08 AM EDT 03/08/2025 11:26 AM EDT us Heath Painting DO LAB BLOOD ORDERABLES Final Result [facility] [address] [place] [address], [place] [phone] from Last 3 Months Insurance MEDICAID - [place] Care Teams Steam Turbine Operator Relationship Specialty Start Date End Date Physician, No Pcp PCP - General 03/08/25
--- NOTE | 2025-06-08 20:30 | ECG_ITS ---
Test Reason : seizure Blood Pressure : */* mmHG Vent. Rate : 65 BPM Atrial Rate : 65 BPM P-R Int : 154 ms QRS Dur : 80 ms QT Int : 394 ms P-R-T Axes : 25 43 26 degrees QTcB Int : 409 ms Normal sinus rhythm Normal ECG When compared with ECG of 02-May-2025 21:22, No significant change was found Referred By: Meño Harris Electronically Signed By: Emmanuel Meyer
[2025-06-08 20:53] VITALS: BP 127/76; PULSE 66; RESP 19; TEMP 36.9; O2SAT 99
--- NOTE | 2025-06-08 20:57 | ED_ITS ---
HPI - General Adult General Chief complaint: Seizure Stated complaint: Seizure lasting 10 mins Time Seen by Provider: 06/08/25 20:16 Source: patient, RN notes reviewed and old records reviewed Mode of arrival: EMS Limitations: no limitations History of Present Illness ED Provider: Kimberly ALVAREZ narrative: 19-year-old female with past medical history significant for anxiety on citalopram presents for evaluation of seizure-like activity. the patient is has been undergoing increased stress since her brother unexpectedly 3 months ago. This is now the 4th reported visit of seizure-like activity which she describes as shaking all over. there was no report incontinence, and the patient did not bite her tongue Today the patient reports he was walking down to her basement to get a basket for laundry. She reports that she felt tingling in her arms and then sat down next with a dry before having seizure-like activity. Apparently this was witnessed by the patient's mother and lasted for 8-10 minutes. The patient also endorses having increased headaches for the last 2 days denies any head strike today as she was able to lower herself to the ground before the onset of the seizure. Per EMS she is being worked up for pseudo seizures in his due to see Neurology in 3 weeks from today. She reports that she has not had any imaging of her brain per EMS, there was no postictal period. At the time of my evaluation the patient is awake, alert and oroented Related Data Previous Rx's ?Medication ?Instructions ?Recorded citalopram 10 mg tablet 10 mg PO DAILY #30 tabs 05/06 12/28 Allergies Allergy/AdvReac Type Severity Reaction Status Date / Time amoxicillin (AMOXICILLIN) Allergy Unknown HIVES Verified 06/08/25 19:47 kiwi (KIWI) Allergy Unknown SWELLING Verified 06/08/25 19:47 Review of Systems 2 Constitutional: Constitutional: Denies body ache(s), Denies chills, Denies fever(s), Denies frequent falls and Reports headache(s) Eyes: Eyes: Denies blurry vision, Denies irritation and Denies itchy eyes ENT: Denies vertigo, Denies dizziness and Reports headache(s) Cardiovascular: Cardiovascular: Denies chest pain and Denies dyspnea on exertion Respiratory: Respiratory: Denies cough and Denies dyspnea on exertion Gastrointestinal: Gastrointestinal: Denies abdominal pain, Denies nausea and Denies vomiting Musculoskeletal: Musculoskeletal: Denies back pain Integumentary/Breasts: Skin/Breast: Denies rash Neurologic: Denies vertigo, Denies dizziness, Denies frequent falls, Reports headache(s) and Reports seizure-like activity Psychiatric: Psychiatric: Denies anxiety Allergic/Immunologic: Allergic/Immunologic: Denies itchy eyes PMFSH Past Medical History Medical History Syncope Anxiety Social History Social History Alcohol intake: current Smoked in Last 30 Days: No Substance Use Type: Marijuana Advance Directives: No Advance Directives Information Provided: No Do you have a plan to hurt others: No Plan Physical Exam ED Vital Signs: Vital Signs - 24 hr 06/08/25 19:42 06/08/25 20:53 Temperature 99 F 98.5 F Pulse Rate 68 66 Respiratory Rate 16 19 Blood Pressure 131/77 127/76 Pulse Oximetry 98 99 Oxygen Delivery Method Room Air Room Air BMI result Body Mass Index 31.3 Const General: healthy appearing, comfortable, no acute distress, alert and awake Nutritional Appearance: well nourished Orientation/consciousness: patient oriented x3 HENMT Head: Yes normocephalic and Yes atraumatic Eyes Eyelids: Yes eyelids normal Conjunctivae: conjunctivae normal Sclerae: sclerae normal Corneas: corneas normal Pupils: Equal, round and reactive pupils present EOM: EOMs intact bilaterally Neck Neck: Yes full ROM Resp Effort & Inspection: normal respiratory effort, able to speak in complete sentences and not labored Skin General skin exam: elasticity normal Neuro General: patient oriented x3 Cranial nerves: Yes CN's II-XII intact bilaterally, Yes Equal, round and reactive pupils present and Yes Bilaterally intact EOM present Cognition (Neuro): normal cognition Extrem Other: Moving all extremities well without any obvious deformities Course Reevaluation(s) Reevaluation #1: patient has been in the ER for over 2 hours, no witnessed seizure-like activity in the ER. She is stable for discharge. Discussed seizure precautions with her. she has appropriate follow up with Neurology in 3 weeks' time Time: 22:09 Medical Decision Making Medical Decision Making MDM Narrative: 19-year-old female presents for evaluation of reportedly witnessed seizure-like activity lasting and to 10 minutes. At the time my evaluation she is awake, alert and oriented. She is not on any antiepileptic medications. There was no reported postictal state by EMS. It is unclear if this was a true epileptic seizure or pseudo-seizure. She complains of significant headache for the last 2 days we will get a CT scan of the brain as this has not been done since the onset of her seizure-like activity. We will also check basic labs for electrolytes, EKG and a tox screen. Vital signs are currently stable Differential Diagnosis Differential Diagnoses: The differential diagnosis associated with the presentation includes pseudo-seizure Seizure-like activity Epilepsy Substance abuse Intracranial mass Lab Data MDM Lab Attestation statement: I reviewed the patient's lab results. no leukocytosis or significant anemia. Normal platelet count. No significant electrolyte abnormalities. The patient is not , ethanol level negative 06/08/25 21:02 06/08/25 21:02 Labs: Lab Results 06/08/25 Range/Units 21:02 WBC 9.3 (4.8-10.8) X10*3/uL RBC 4.27 (4.20-5.50) X10*6/uL Hgb 12.1 (12.0-16.0) g/dl Hct 36.0 L (37.0-47.0) % MCV 84.3 (80.0-98.0) fL MCH 28.3 (27.0-33.0) pg MCHC 33.6 (31.0-35.0) g/dl RDW 12.9 (11.0-16.0) % Plt Count 255 (160-400) X10*3/uL MPV 9.8 (9.4-12.3) fL Immature Gran % (Auto) 0.2 (0.0-0.4) % Neut % (Auto) 68.0 (45-73) % Lymph % (Auto) 23.1 (20-40) % Archuleta % (Auto) 7.2 (2-11) % Eos % (Auto) 1.2 (0-4) % Baso % (Auto) 0.3 (0-2) % Lymph # (Auto) 2.2 (1.2-4.9) X10*3/uL Archuleta # (Auto) 0.7 (0.1-1.2) X10*3/uL Eos # (Auto) 0.1 (0.0-0.4) X10*3/uL Baso # (Auto) 0.0 (0.0-0.2) X10*3/uL Abs Immat Gran (auto) 0.02 (0.00-0.03) X10*3/uL Absolute Neuts (auto) 6.4 (2.0-8.3) x10*3/uL Absolute Nucleated RBC 0.000 (0.0-0.012) X10*3/uL Nucleated RBC % (auto) 0.0 (0.0-0.2) /100WBC Sodium 142 (135-145) mmol/L Potassium 4.3 (3.3-5.1) mmol/L Chloride 109 H (96-108) mmol/L Carbon Dioxide 26 (22-29) mmol/L Anion Gap 11 L (12-20) BUN 10 (9-16) mg/dL Creatinine 0.69 (0.5-1.4) mg/dL Estim Creat Clear Calc 144.1 Estimated GFR > 60 Random Glucose 86 (60-115) mg/dL Lactic Acid 0.9 (0.5-2.0) mmol/L Calcium 9.1 (8.4-10.2) mg/dL Total Bilirubin 0.4 (0.0-1.0) mg/dL AST 29 (5-31) U/L ALT 19 (0-31) U/L Alkaline Phosphatase 71 (39-117) U/L Total Creatine Kinase 80 (26-140) U/L Total Protein 6.7 (6.5-8.0) g/dL Albumin 4.1 (3.5-5.0) g/dL Lipase 14 (8-78) U/L Beta HCG, Quant < 2 mIU/mL Ethyl Alcohol < 10 mg/dL Radiology Impression Discussion of test interpretation with radiology: I have reviewed the radiologist's reading. Radiologist Impression: Findings: No intra-axial mass, midline shift, hydrocephalus, or acute hemorrhage. No significant atrophy-like change or white matter disease. The visualized paranasal sinuses and mastoid air cells are normal. The orbits are within normal limits. No skull fracture. IMPRESSION: 1. No acute intracranial findings. This document has been electronically signed by: Chito Topete MD on 06/08/2025 21:56:32 Discharge Plan Discharge Clinical Impression: Observed seizure-like activity Patient Disposition: Home, Self-Care Additional Instructions: you should not drive or operate heavy machinery for at least 6 months or until cleared by Neurology follow-up with neurology in 3 weeks as planned. Take your medications as prescribed. Return for new or worsening symptoms Prescriptions: No Action citalopram 10 mg tablet 10 mg PO DAILY Qty: 30 6RF Stand Alone Forms: Work/School Release Print Language: Maori
[2025-06-08 21:10] LABS: MANUAL DIFF FLAG NO
[2025-06-08 21:12] LABS: Hematocrit 36.0 % (37.0-47.0); Hemoglobin 12.1 g/dl (12.0-16.0); Imm Gran Abs Auto 0.02 X10*3/uL (0.00-0.03); Imm Gran Pct Auto 0.2 % (0.0-0.4); Lymphocytes Absolute Auto 2.2 X10*3/uL (1.2-4.9); Mean Corpuscular HGB Conc 33.6 g/dl (31.0-35.0); Mean Corpuscular Hemoglobin 28.3 pg (27.0-33.0); Mean Corpuscular Volume 84.3 fL (80.0-98.0); NRBC Abs Auto 0.000 X10*3/uL (0.0-0.012); NRBC Pct Auto 0.0 /100WBC (0.0-0.2); Platelet Count 255 X10*3/uL (160-400); Red Blood Count 4.27 X10*6/uL (4.20-5.50); White Blood Count 9.3 X10*3/uL (4.8-10.8)
[2025-06-08 21:27] LABS: Alanine Aminotransferase 19 U/L (0-31); Albumin Level 4.1 g/dL (3.5-5.0); Alkaline Phosphatase 71 U/L (39-117); Anion Gap 11 (12-20); Aspartate Amino Transferase 29 U/L (5-31); Blood Urea Nitrogen 10 mg/dL (9-16); Calcium 9.1 mg/dL (8.4-10.2); Carbon Dioxide 26 mmol/L (22-29); Chloride 109 mmol/L (96-108); Creatinine Clr Calc Pharmacy 144.1; Estimated Glomerular Filt Rate > 60; Lipase 14 U/L (8-78); Potassium 4.3 mmol/L (3.3-5.1); Sodium 142 mmol/L (135-145); Total Protein 6.7 g/dL (6.5-8.0)
[2025-06-08 22:14] VITALS: BP 127/76; PULSE 66; RESP 19; TEMP 36.9; O2SAT 99
== END 2025-06-08 22:24 | disposition home or self-care (01) ==
PROVIDERS: Physician Assistant; Emergency Provider Emergency Medicine Emergency Medical Services
DX: R56.9 Unspecified convulsions (principal); F41.9 Anxiety disorder, unspecified; R51.9 Headache, unspecified; R10.2 Pelvic and perineal pain; Z79.899 Other long term (current) drug therapy
CPT/HCPCS: 36415; 70450; 80053; 80307; 82550; 83605; 83690; 84702; 85025; 93005; 99284

== ENCOUNTER → 2025-06-08 20:30 | Outpatient (BNV) | payer OTHER, SELFPAY | PROVIDERS: Emergency Provider Emergency Medicine Emergency Medical Services; Visit Provider Internal Medicine Cardiovascular Disease | DX: R56.9 Unspecified convulsions (principal) | CPT/HCPCS: 93010 ==

== ENCOUNTER → 2025-06-08 20:36 | Outpatient (BNV) | payer SELFPAY | PROVIDERS: Emergency Provider Emergency Medicine Emergency Medical Services; Visit Provider Radiology Diagnostic Radiology | DX: R51.9 Headache, unspecified (principal) | CPT/HCPCS: 70450 ==

== ENCOUNTER 2025-06-11 20:59 | Emergency (ER) | payer OTHER, SELFPAY ==
--- NOTE | 2025-06-11 | ECG_ITS ---
Test Reason : SEIZURE Blood Pressure : */* mmHG Vent. Rate : 63 BPM Atrial Rate : 63 BPM P-R Int : 152 ms QRS Dur : 84 ms QT Int : 406 ms P-R-T Axes : 46 43 29 degrees QTcB Int : 415 ms Normal sinus rhythm Normal ECG When compared with ECG of 08-Jun-2025 20:48, No significant change was found Referred By: Generic ED Physician Electronically Signed By: JULIO GAR MD
[2025-06-11 21:05] VITALS: BP 122/70; BP 122/78; PULSE 60; PULSE 65; RESP 16; TEMP 36.8; O2SAT 98; O2SAT 99; BMI 32.9
[2025-06-11 21:09] VITALS: BP 119/72; PULSE 66; RESP 16; TEMP 36.8; O2SAT 99
[2025-06-11 21:11] LABS: Glucose, Whole Blood 109 mg/dL (60-115)
[2025-06-11 21:36] LABS: Hematocrit 37.0 % (37.0-47.0); Hemoglobin 12.6 g/dl (12.0-16.0); Imm Gran Abs Auto 0.02 X10*3/uL (0.00-0.03); Imm Gran Pct Auto 0.2 % (0.0-0.4); Lymphocytes Absolute Auto 2.4 X10*3/uL (1.2-4.9); MANUAL DIFF FLAG NO; Mean Corpuscular HGB Conc 34.1 g/dl (31.0-35.0); Mean Corpuscular Hemoglobin 28.5 pg (27.0-33.0); Mean Corpuscular Volume 83.7 fL (80.0-98.0); NRBC Abs Auto 0.000 X10*3/uL (0.0-0.012); NRBC Pct Auto 0.0 /100WBC (0.0-0.2); Platelet Count 267 X10*3/uL (160-400); Red Blood Count 4.42 X10*6/uL (4.20-5.50); White Blood Count 8.4 X10*3/uL (4.8-10.8)
[2025-06-11 21:50] LABS: Alanine Aminotransferase 23 U/L (0-31); Albumin Level 4.2 g/dL (3.5-5.0); Alkaline Phosphatase 70 U/L (39-117); Anion Gap 13 (12-20); Aspartate Amino Transferase 26 U/L (5-31); Blood Urea Nitrogen 9 mg/dL (9-16); Calcium 8.7 mg/dL (8.4-10.2); Carbon Dioxide 24 mmol/L (22-29); Chloride 109 mmol/L (96-108); Creatinine Clr Calc Pharmacy 145.7; Estimated Glomerular Filt Rate > 60; Potassium 3.8 mmol/L (3.3-5.1); Sodium 142 mmol/L (135-145); Total Protein 6.7 g/dL (6.5-8.0)
--- OUTSIDE RECORDS SUMMARY | 2025-06-11 22:07 | XMS_ITS | Clinical Summary ---
Author Organization [facility] Address [address] [place] [phone] Phone Care Team Providers Care Implement Mechanic Name Role Phone Unavailable Primary Care Provider [...] Depo-Provera contraceptive status 02/11/2022 Overview (02/11/2022): Via Independent Living Advisor Assessment & Plan (02/11/2022 8:45 AM EDT): On Depo via Independent Living Advisor. Encouraged condom use every time. Seasonal allergic rhinitis due to pollen 019 Overview (10/17/2020): Tree pollen clarritin Pediatric body mass index (B NC) of greater than or equal to 95th [...] Overview (10/17/2020): Had on 10/13/2020. FU with SALES SERVICE ROUTE MANAGER in December 2020 and DEPO given with SALES SERVICE ROUTE MANAGER. Immunizations Immunization Administration Dates Next Due DTaP [...] n age: 38 Other Alive Siblings: healt [id number] 1998,2001 Paternal Grandfather Alive Paternal Grandmother Alive [...] Vaccine (1 of 2 - Standard) 2019 Influenza Vaccines (#1) 2025 02/12/20, 10/17/2020, 09/07/2019, Additional history exists COVID-19 Vaccine (4 - 2024-2 6 season) 2025 08/21/2022, 04/03/2021, 03/13/2021 DTaP,Tdap,and Td Vaccines (7 - Td or [...] Completed 10/17/2020, 015 Procedures * Due to [place] [employer]/Protect law, this organization might not be sharing sensitive test results. Procedure Name Priority Date/Time Associated Diagnosis Comments CHLAMYDIA AND GONORRHEA, AMPLIFIED Routine 02/11/2022 11:00 AM EDT Encounter for well adult exam with abnormal findings from Last 3 Months or Most Recently Relevant to Health Maintenance Results * Due to [place] [employer]/Protect law, this organization might not be sharing sensitive test results. * Chlamydia and Gonorrhoea, Amplified (02/11/2022 11:00 AM EDT) Chlamydia Trachomatis, DNA Probe NEGATIVE (NEG) [facility] Comment: No Chlamydia Trachomatis RNA detected in this patient's sample (REFERENCE RANGE/NORMAL VALUE: NOT DETECTED) Note: This test uses administrative assistant receptionist- mediated amplification method to detect rRNA from C. Trachomatis URINE GC AMP PROBE NEGATIVE (NEG) [facility] Comment: No Neisseria Gonorrhoeae RNA detected in this patient's sample (REFERENCE RANGE/NORMAL VALUE: NOT DETECTED) NOTE: This test uses administrative assistant receptionist-mediated amplification method to detect rRNA from N.Gonorrhoeae. [...] without risk of sexual abuse. Consult the [facility] if needed. Contact phone number . Therapeutic failure or success cannot be determined with the Aptima Combo2 assay since nucleic acid may persist following appropriate antimicrobial therapy. The Centers for Disease Control and Prevention (CDC) recommends confirmatory retesting using culture or a different nucleic acid amplification test when positive results occur, if indicated. Testing performed or reported by [facility], a Service of [facility], [facility] [place] [address] Chapito Regan MD, [employer]inter [employer] [facility]# [id number] Urine (Urine) 02/11/2022 11: 00 AM EDT 02/11/2022 8:58 PM EDT Regla Valadez MD LAB MICROBIOLOGY - GENERAL OR DERABLES Final Result [facility] from Last 3 Months or Most Recently Relevant to Health Maintenance Insurance [facility] Address: [address] [place] [phone]
--- OUTSIDE RECORDS SUMMARY | 2025-06-11 22:07 | XMS_ITS | Encounter Summary ---
Author Organization [facility] Address [address] [place] [address] Phone Care Team Providers Care Unix Consultant Name Role Phone Regla Valadez MD Primary Care Provider [phone] Encounter Details Date Type Department Care Team (Late st Contact Info) Description 02/22/2018 [facility]counter [facility] [address] [address] Regla Valadez MD [address] [place] [phone] Social History Tobacco Use Types Packs/Day Years [...] on filedocumented in this encounter Care Teams Unix Consultant Relationship Specialty Start Date End Date Regla Valadez MD [address] [place] [address] PCP - General 02/11/18 12/13/24 documented as of this encounter
--- OUTSIDE RECORDS SUMMARY | 2025-06-11 22:07 | XMS_ITS | Clinical Summary ---
Author Organization [facility] Address [address] [place] [phone] Phone Care Team Providers Care Router Tender Name Role Phone Physician, No Pcp Primary Care Provider Unavaila ble Allergies Active Allergy Reactions Criticality Noted Date Comments Amoxicillin Swelling 03/08/2025 Medications No known medications Active Problems No known active problems Social History Tobacco Use Types Packs/Day Years [...] on patient's age to complete this topic Insurance [place] - [place] Care Teams Router Tender Relationship Specialty Start Date End Date Physician, No Pcp PCP - General 03/08/25
--- NOTE | 2025-06-11 22:19 | ED_ITS ---
HPI - Seizure General Chief Complaint: Seizure Stated Complaint: SEIZURE X2 TONIC CLONIC Time Seen by Provider: 06/11/25 21:49 Source: EMS Mode of arrival: EMS History of Present Illness HPI Narrative: This is a 19 years old the patient presented to the emergency department with a chief complaint of seizure which lasted about 2 minutes the seizure was witnessed by the boyfriend according to the boyfriend she had tonic-clonic movement in bed according to the boyfriend she was postictal after. The patient was seen in the emergency room on June 08 for possible seizure as well she had a negative CT of the head. complaint: possible seizure Onset (ago): hour(s) (1) Description of Episode: tonic-clonic movement -: minutes(s) (2) Witnessed: No Seizure History: No Place: Home Possible Precipitating Event: none Associated symptoms: denies other symptoms Related Data Previous Rx's ?Medication ?Instructions ?Recorded citalopram 10 mg tablet 10 mg PO DAILY #30 tabs 05/06 12/28 levetiracetam 500 mg tablet 500 mg PO BID #60 tabs 03/30 (Keppra) Allergies Allergy/AdvReac Type Severity Reaction Status Date / Time amoxicillin (AMOXICILLIN) Allergy Unknown HIVES Verified 06/11/25 21:09 kiwi (KIWI) Allergy Unknown SWELLING Verified 06/11/25 21:09 Review of Systems 2 Constitutional: Constitutional: Reports no additional constitutional complaints Cardiovascular: Cardiovascular: Reports no additional cardiovascular complaints Psychiatric: Psychiatric: Reports as per [facility] Past Medical History Attestation statement: The following information was validated with the patient. Medical History Syncope Anxiety Social History Social History Alcohol intake: current Substance Use Type: Marijuana Advance Directives: No Advance Directives Information Provided: No Physical Exam 2 Exam: Exam: Patient is now awake alert oriented x3 Vital Signs: Vital Signs: Last Vital Signs Temp 98.3 F 06/12/25 00:49 Pulse 57 06/12/25 00:49 Resp 16 06/12/25 00:49 BP 110/54 L 06/12/25 00:49 Pulse Ox 97 06/12/25 00:49 O2 Del Method Room Air 06/12/25 00:49 BMI result Body Mass Index 32.9 Const: General: cooperative, comfortable and no acute distress Nutritional Appearance: average body habitus Orientation/consciousness: patient oriented x3 Limitations: no limitations HEENT: Head: Yes normal to inspection General nose exam: Normal external nose present Face and sinus: Yes normal facial exam Mouth: Normal oral and palatal mucosa present Neck: Neck: Yes normal visual inspection Resp: Effort & Inspection: normal respiratory effort Auscultation: clear to auscultation bilaterally Cardio: Jugular venous distension: no JVD Rate: regular rate Rhythm: r egular rhythm GI: Inspection: Yes normal to inspection Palpation (GI): Soft to palpation, not firm and nontender Skin: General skin exam: no rashes or lesions noted, elasticity normal and turgor normal Lesions: no lesions Rashes: no rashes Neuro: General: patient oriented x3 Cranial nerves: Yes CN's II-XII intact bilaterally Cognition (Neuro): normal cognition Course Reevaluation(s) Reevaluation #1: On re-evaluation the patient is completely asymptomatic workup is negative we will discharge the patient home I am going to start her on Keppra this is a 2nd trip to the emergency department patient was told not to drive or operate a machine Time: 23:50 Medications Administered Discontinued Medications Generic Name Dose Route Start Last Admin Trade Name Diana PRN Reason Stop Dose Admin Diazepam 5 mg 06/11/25 22:04 06/11/25 22:53 Diazepam 5 Mg Tablet PO 06/11/25 22:05 5 mg ONCE ONE Administration Levetiracetam 1,500 mg in 100 mls @ 400 mls/hr 06/11/25 22:18 06/11/25 23:08 Keppra IV 06/11/25 22:32 Infused ONCE ONE Infusion Medical Decision Making Medical Decision Making [facility] Narrative: This is a 2nd trip to the emergency department for possible seizure, I will start him on Keppra, patient has a appointment for EEG and neuro follow-up. I do not think any to do another CAT scan she had a CAT scan of the head that 3 days ago 23:51 labs normal remained stable we will discharge her home on Keppra she has a an appointment with coming up with the Neurology and she has a an appointment before EKG she was told not to drive Differential Diagnosis Differential Diagnoses: The differential diagnosis associated with the presentation includes Seizure/nonepileptic seizure Lab Data MDM Lab Attestation statement: I reviewed the patient's lab results. 06/11/25 21:25 06/11/25 21:25 Labs: Lab Results 06/11/25 06/11/25 Range/Units 21:07 21:25 WBC 8.4 (4.8-10.8) X10*3/uL RBC 4.42 (4.20-5.50) X10*6/uL Hgb 12.6 (12.0-16.0) g/dl Hct 37.0 (37.0-47.0) % MCV 83.7 (80.0-98.0) fL MCH 28.5 (27.0-33.0) pg MCHC 34.1 (31.0-35.0) g/dl RDW 12.8 (11.0-16.0) % Plt Count 267 (160-400) X10*3/uL MPV 9.8 (9.4-12.3) fL Immature Gran % (Auto) 0.2 (0.0-0.4) % Neut % (Auto) 63.6 (45-73) % Lymph % (Auto) 28.6 (20-40) % [place] % (Auto) 5.5 (2-11) % Eos % (Auto) 1.7 (0-4) % Baso % (Auto) 0.4 (0-2) % Lymph # (Auto) 2.4 (1.2-4.9) X10*3/uL [place] # (Auto) 0.5 (0.1-1.2) X10*3/uL Eos # (Auto) 0.1 (0.0-0.4) X10*3/uL Baso # (Auto) 0.0 (0.0-0.2) X10*3/uL Abs Immat Gran (auto) 0.02 (0.00-0.03) X10*3/uL Absolute Neuts (auto) 5.4 (2.0-8.3) x10*3/uL Absolute Nucleated RBC 0.000 (0.0-0.012) X10*3/uL Nucleated RBC % (auto) 0.0 (0.0-0.2) /100WBC Sodium 142 (135-145) mmol/L Potassium 3.8 (3.3-5.1) mmol/L Chloride 109 H (96-108) mmol/L Carbon Dioxide 24 (22-29) mmol/L Anion Gap 13 (12-20) BUN 9 (9-16) mg/dL Creatinine 0.70 (0.5-1.4) mg/dL Estim Creat Clear Calc 145.7 Estimated GFR > 60 POC Glucose 109 (60-115) mg/dL Random Glucose 91 (60-115) mg/dL Calcium 8.7 (8.4-10.2) mg/dL Total Bilirubin 0.4 (0.0-1.0) mg/dL AST 26 (5-31) U/L ALT 23 (0-31) U/L Alkaline Phosphatase 70 (39-117) U/L Total Protein 6.7 (6.5-8.0) g/dL Albumin 4.2 (3.5-5.0) g/dL Beta HCG, Quant < 2 mIU/mL Independent Historian Clinical information obtained from an independent historian. History obtained from or confirmed by: Other Boyfriend mother and father Discharge Plan Discharge Clinical Impression: Seizure Patient Disposition: Home, Self-Care Instructions: Recurrent Seizures in Adults (ED) Additional Instructions: Do not drive or operate machine for 6 month follow-up with your primary care physician Prescriptions: New levetiracetam [Keppra] 500 mg tablet 500 mg PO BID Qty: 60 0RF No Action citalopram 10 mg tablet 10 mg PO DAILY Qty: 30 6RF Referrals: [facility] [Provider Group] - 06/14/25 Interventions: ED Discharge Assessment Last Done: 06/12/25 00:49 Discharge Date/Time: 06/12/25 00:51 Print Language: Serbian
[2025-06-11] MEDS: levETIRAcetam in NaCl (iso-os) 1,500 MG/100 ML PIGGYBACK 400 MG IV (22:53)
[2025-06-11 23:27] VITALS: BP 115/56; PULSE 65; RESP 18; O2SAT 96
[2025-06-11 23:56] VITALS: BP 110/54; PULSE 57; RESP 16; TEMP 36.8; O2SAT 97
[2025-06-12 00:49] VITALS: BP 110/54; PULSE 57; RESP 16; TEMP 36.8; O2SAT 97
== END 2025-06-12 00:51 | disposition home or self-care (01) ==
PROVIDERS: Emergency Provider Emergency Medicine
DX: R56.9 Unspecified convulsions (principal)
CPT/HCPCS: 36415; 80053; 82947; 84702; 85025; 93005; 96374; 99284; J1953

== ENCOUNTER → 2025-06-11 21:21 | Outpatient (BNV) | payer OTHER, SELFPAY | PROVIDERS: Emergency Provider Emergency Medicine; Visit Provider Internal Medicine Cardiovascular Disease | DX: R56.9 Unspecified convulsions (principal) | CPT/HCPCS: 93010 ==

== ENCOUNTER 2025-06-29 13:12 | Outpatient (REF) | payer OTHER, SELFPAY ==
--- NOTE | 2025-06-29 13:15 | EEG_ITS ---
Roomed Performed:?402 Reason: syncope and collapse History: Patient reports episodes of tonic clonic type seizures since March 2025 when she lost her brother. Previously patient had one other episode when she was 14 and her uncle . Patient states last episode was 3 weeks ago. Patient went to the hospital at the time and was started on Keppra.? Medication: citalopram, keppra Technical description Photic stimulation: completed Hyperventilation:?fair effort Behavioral state: pleasant State of Consciousness: awake Skull defect: none Sedation: none Handedness: left Duration of study:?32 min 52 sec Description: This is a 16 channel EEG with an EKG lead. Background EEG rhythm is low to medium amplitude mixed theta beta with occasional right frontocentral sharp waves. Photic stimulation does not produce any significant driving. Hyperventilation does not result in any significant changes. Cardiac lead does not reveal any cardiac arrhythmia. Impression: Mildly abnormal EEG suggestive of right hemispheric irritability. MTDD
--- OUTSIDE RECORDS SUMMARY | 2025-06-29 15:35 | XMS_ITS | Clinical Summary ---
Author Organization [facility] Address [address] [place] [phone] Phone Care Team Providers Care Tea Tree Farm Worker Name Role Phone Unavailable Primary Care Provider [...] Depo-Provera contraceptive status 02/11/2022 Overview (02/11/2022): Via Waste Chopper Assessment & Plan (02/11/2022 8:45 AM EDT): On Depo via Waste Chopper. Encouraged condom use every time. Seasonal allergic rhinitis due to pollen 019 Overview (10/17/2020): Tree pollen clarritin Pediatric body mass index (B OH) of greater than or equal to 95th [...] Overview (10/17/2020): Had on 10/13/2020. FU with SYSTEM SUPPORT ADMINISTRATOR in December 2020 and DEPO given with SYSTEM SUPPORT ADMINISTRATOR. Immunizations Immunization Administration Dates Next Due DTaP [...] n age: 38 Other Alive Siblings: healt [id number] 1998,2001 Paternal Grandfather Alive Paternal Grandmother Alive [...] Completed 10/17/2020, 015 Procedures * Due to [place] [employer] law, this organization might not be sharing sensitive test results. Procedure Name Priority Date/Time Associated Diagnosis Comments CHLAMYDIA AND GONORRHEA, AMPLIFIED Routine 02/11/2022 11:00 AM EDT Encounter for well adult exam with abnormal findings from Last 3 Months or Most Recently Relevant to Health Maintenance Results * Due to [place] [employer] law, this organization might not be sharing sensitive test results. * Chlamydia and Gonorrhoea, Amplified (02/11/2022 11:00 AM EDT) Chlamydia Trachomatis, DNA Probe NEGATIVE (NEG) [facility] Comment: No Chlamydia Trachomatis RNA detected in this patient's sample (REFERENCE RANGE/NORMAL VALUE: NOT DETECTED) Note: This test uses theater usher- mediated amplification method to detect rRNA from C. Trachomatis URINE GC AMP PROBE NEGATIVE (NEG) [facility] Comment: No Neisseria Gonorrhoeae RNA detected in this patient's sample (REFERENCE RANGE/NORMAL VALUE: NOT DETECTED) NOTE: This test uses theater usher-mediated amplification method to detect rRNA from N.Gonorrhoeae. [...] without risk of sexual abuse. Consult the [facility] if needed. Contact phone number . Therapeutic failure or success cannot be determined with the Aptima Combo2 assay since nucleic acid may persist following appropriate antimicrobial therapy. The Centers for Disease Control and Prevention (CDC) recommends confirmatory retesting using culture or a different nucleic acid amplification test when positive results occur, if indicated. Testing performed or reported by [facility], a Service of [facility], [facility] [place] [address] Chapito Regan MD, Customer Sales Service Manager [facility]# [id number] Urine (Urine) 02/11/2022 11: 00 AM EDT 02/11/2022 8:58 PM EDT Regla Valadez MD LAB MICROBIOLOGY - GENERAL OR DERABLES Final Result [facility] from Last 3 Months or Most Recently Relevant to Health Maintenance Insurance COMMERCIAL
--- OUTSIDE RECORDS SUMMARY | 2025-06-29 15:35 | XMS_ITS | Encounter Summary ---
Author Organization [facility] Address [address] [place] [address] Phone Care Team Providers Care Architect Marine Name Role Phone Regla Valadez MD Primary Care Provider [phone] Encounter Details Date Type Department Care Team (Late st Contact Info) Description 02/22/2018 [facility]counter [facility] [address] [address] Regla Valadez MD [address] [place] [id number] Social History Tobacco Use Types Packs/Day Years [...] on filedocumented in this encounter Care Teams Architect Marine Relationship Specialty Start Date End Date Regla Valadez MD [address] [place] [address] PCP - General 02/11/18 12/13/24 documented as of this encounter
--- OUTSIDE RECORDS SUMMARY | 2025-06-29 15:35 | XMS_ITS | Clinical Summary ---
Author Organization [facility] Address [address] [place] [phone] Phone Care Team Providers Care Baseball Glove Shaper Name Role Phone Physician, No Pcp Primary [...] 08/16/2025 08/16/2015, 01/31/2009, 07/31/2005, Additional history exists RSV Immunization Adult Patients (1 - 1-dose 75+ series) 2078 Hepatitis B Vaccines Completed 11/01/2004, 2003, 2003 [...] to complete this topic Insurance MEDICAID - [place] Care Teams Baseball Glove Shaper Relationship Specialty Start Date End Date Physician, No Pcp PCP - General 03/08/25
== END 2025-06-29 13:13 | disposition home or self-care (01) ==
LOC: HO.NEURO 13:12
PROVIDERS: Visit Provider Psychiatry & Neurology Neurology
DX: R55 Syncope and collapse (principal); R94.01 Abnormal electroencephalogram [EEG]
CPT/HCPCS: 95816

== ENCOUNTER → 2025-06-29 13:15 | Outpatient (BNV) | payer OTHER, SELFPAY | PROVIDERS: Visit Provider Psychiatry & Neurology Neurology | DX: R55 Syncope and collapse (principal); R94.01 Abnormal electroencephalogram [EEG] | CPT/HCPCS: 95816 ==

== ENCOUNTER 2025-07-28 13:57 | Outpatient (AMB) | payer OTHER, SELFPAY ==
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
[2025-07-28 14:06] VITALS: BP 142/82; PULSE 79; O2SAT 99; BMI 32.5
--- OUTSIDE RECORDS SUMMARY | 2025-07-28 17:50 | XMS_ITS | Encounter Summary ---
Author Organization [facility] Address [address] [place] [address] Phone Care Team Providers Care Cardiac Cath Rn Name Role Phone Regla Valadez MD Primary Care Provider [phone] Encounter Details Date Type Department Care Team (Late st Contact Info) Description 02/22/2018 [facility]counter [facility] [address] [address] Regla Valadez MD [address] [place] [id number] Social History Tobacco Use Types Packs/Day Years [...] on filedocumented in this encounter Care Teams Cardiac Cath Rn Relationship Specialty Start Date End Date Regla Valadez MD [address] [place] [address] PCP - General 02/11/18 12/13/24 documented as of this encounter
--- OUTSIDE RECORDS SUMMARY | 2025-07-28 17:50 | XMS_ITS | Clinical Summary ---
Author Organization [facility] Address [address] [place] [phone] Phone Care Team Providers Care Rehab Nursing Tech Name Role Phone Physician, No Pcp Primary [...] to complete this topic Insurance MEDICAID - [place] Care Teams Rehab Nursing Tech Relationship Specialty Start Date End Date Physician, No Pcp PCP - General 03/08/25
--- OUTSIDE RECORDS SUMMARY | 2025-07-28 17:50 | XMS_ITS | Data Portability ---
Author Organization [facility] [address] Address [address] [place] [address] Assessment No assessment recorded. Plan of Treatment Reminders Order Date Submit Date Provider Last Modified By Organization Details Last Modified Time Details Appointments None recorded. Lab None recorded. Referral None recorded. Procedures None recorded. Surgeries None recorded. Imaging None recorded. Medication Orders doxycycline hyclate 100 mg capsule 2022 023 [facility] #[id number], [address] [place], [address], 09:51:55 Patient TargetsNo targets recorded. Patient Instructions Encounter Date Encounter Id Patient Instructions Last Modified By Organization Details Last Modified Time 04/22/2023 [id number] insect stings an d bites: care instructions Not available 04/22/2023 09:51:53 cellulitis: care instructions Not available 04/22/2023 09:51:52 Reason for Referral None Reported. Problems No Known Problems Medical Equipment None Reported. Allergies Allergen ID Allergen Name Allergen Category Reaction Reaction Severity Criticality Documentation Date Start Date Code Code System Note Provider Name and Address Organization Details Recorded Time 765212 amoxicill in medicatio n Not available Not [...] 3 165.1 cm 98 % 38.3 kg/m2 016151. 25 g 4 18 /min 98 % 98 % 59 /min 98.8 [degF] 133/85 mm[Hg] Miranda Telles [employer] 09:17:27 Social History Question Answer Notes LastModified by [employer] Details LastModified Time Tobacco Smoking Status Never Smoker JULIA Soto [facility] 04/22/2023 09:15:24 Have You Recently Traveled Abroad? No Information not available 04/22/2023 Sex: Unknown Functional Status Question Answer Note LastModified by [employer] Details LastModified Time Do you use any [...] Recorded Time HPV9 6 completed JULIA Soto [employer] [facility] 04/22/2023 09:14:43 HPV9 7 completed Miranda Monfette [...] split virus, quadrivalent, PF 8 completed Miranda Sterling null, [place] - [facility] 04/22/2023 09:14:44 Influenza, split virus, quadrivalent, PF 9 completed Miranda Doylee null, [place] - [facility] 04/22/2023 09:14:44 Past Encounters Encounter ID Performer Location Encounter Start Date Encounter Closed Date Diagnosis/Indication Diagnosis SNOMED-CT Code Diagnosis ICD10 Code Diagnosis IMO Codes Diagnosis Note [id number] [address] [place] [address] 05/08/2021 15:54:56 05/08/2021 17:50:27 [id number] [address] [place] [address] 06/26/2020 14:33:32 06/26/2020 15:35:45 [id number] [address] [place] [address] 07/14/2022 09:00:03 07/14/2022 11:12:37 [id number] Jesus Goetz MD [address] [place] [address] 04/22/2023 08:19:44 04/22/2023 09:57:08 Infected insect bite [id number] L08.9 Please follow up with PCP or Urgent Care in 3-5 days if no improvemen t or if any new symptoms occur that are concerning .recommend ed warm compresses or Epsom salt soaks. F/u for any increased swelling, redness, drainage, fever, or red streaks that travel up from the wound. Health Concerns Section Related Observation LastModified by Organization Katie fuentes LastModified Time None Recorded Concern Status LastModified by Organization Details LastModified Time None Recorded Advance Directives Directive None Recorded Payers Insurance Date Sequence Insurance Name Policy Number Policy Flores Covered Member ID Flores Member ID Guarantor Name 04/22/[address] [place] [address] [id number] Gissel Stoll [id number] Gissel Stoll Notes Date Note Type Note Provider Name and Address Organization Details Recorded Time 04/22/2023 text/html Skin Redness UCReported by PatientSkin Redness UCFor quality, patient reportspainful,burni ng,erythematous,rais ed, andwarm. For severity, patient reportsworsening. For location, patient reportsright legs. For onset, patient reportsgradual onset. For aggravating factors, patient reportsnothing makes it worse. For symptoms, patient reportsno fever,no nausea,no vomiting, andno swelling. Jesus Goetz MD [address] [place], [address], [place] - [facility] 04/22/2023 09:53:44 OBGyn Episode No OBEpisode recorded.
--- OUTSIDE RECORDS SUMMARY | 2025-07-28 17:50 | XMS_ITS | Clinical Summary ---
Author Organization [facility] Address [address] [place] [id number] Phone Care Team Providers Care Correctional Medicine Physician Name Role Phone Unavailable Primary Care Provider [...] Depo-Provera contraceptive status 02/11/2022 Overview (02/11/2022): Via Club Car Attendant Assessment & Plan (02/11/2022 8:45 AM EDT): On Depo via Club Car Attendant. Encouraged condom use every time. Seasonal allergic rhinitis due to pollen 019 Overview (10/17/2020): Tree pollen clarritin Pediatric body mass index (B [place]) of greater than or equal to 95th [...] Overview (10/17/2020): Had on 10/13/2020. FU with WAITER/WAITRESS TOURIST CLASS in December 2020 and DEPO given with WAITER/WAITRESS TOURIST CLASS. Immunizations Immunization Administration Dates Next Due DTaP [...] n age: 36 Other Alive Siblings: healt [id number] 1998,2001 Paternal Grandfather Alive Paternal Grandmother Alive [...] Completed 10/17/2020, 015 Procedures * Due to [place] [employer] law, this organization might not be sharing sensitive test results. Procedure Name Priority Date/Time Associated Diagnosis Comments CHLAMYDIA AND GONORRHEA, AMPLIFIED Routine 02/11/2022 11:00 AM EDT Encounter for well adult exam with abnormal findings from Last 3 Months or Most Recently Relevant to Health Maintenance Results * Due to [place] [employer] law, this organization might not be sharing sensitive test results. * Chlamydia and Gonorrhoea, Amplified (02/11/2022 11:00 AM EDT) Chlamydia Trachomatis, DNA Probe NEGATIVE (NEG) [facility] Comment: No Chlamydia Trachomatis RNA detected in this patient's sample (REFERENCE RANGE/NORMAL VALUE: NOT DETECTED) Note: This test uses singing telegram performer- mediated amplification method to detect rRNA from C. Trachomatis URINE GC AMP PROBE NEGATIVE (NEG) [facility] Comment: No Neisseria Gonorrhoeae RNA detected in this patient's sample (REFERENCE RANGE/NORMAL VALUE: NOT DETECTED) NOTE: This test uses singing telegram performer-mediated amplification method to detect rRNA from N.Gonorrhoeae. [...] risk of sexual abuse. Consult the [facility] if needed. Contact phone number . Therapeutic failure or success cannot be determined with the Aptima Combo2 assay since nucleic acid may persist following appropriate antimicrobial therapy. The Centers for Disease Control and Prevention (CDC) recommends confirmatory retesting using culture or a different nucleic acid amplification test when positive results occur, if indicated. Testing performed or reported by [facility], a Service of [facility], [facility] [place] [address] Chapito Regan MD, Material Controller [facility]# [id number] Urine (Urine) 02/11/2022 11: 00 AM EDT 02/11/2022 8:58 PM EDT Regla Valadez MD LAB MICROBIOLOGY - GENERAL OR DERABLES Final Result [facility] from Last 3 Months or Most Recently Relevant to Health Maintenance Insurance [employer]
== END 2025-07-28 14:25 | disposition home or self-care (01) ==
LOC: HO.HSMS 13:57
PROVIDERS: Visit Provider Psychiatry & Neurology Neurology
DX: G40.909 Epilepsy, unspecified, not intractable, without status epilepticus (principal)
CPT/HCPCS: 99214

== ENCOUNTER → 2025-07-28 13:57 | Outpatient (BNVA) | payer OTHER, SELFPAY | PROVIDERS: Visit Provider Psychiatry & Neurology Neurology | DX: Z71.2 Person consulting for explanation of examination or test findings (principal); G40.909 Epilepsy, unspecified, not intractable, without status epilepticus | CPT/HCPCS: 99212 ==

== ENCOUNTER 2025-09-06 14:17 | Outpatient (AMB) | payer OTHER, SELFPAY ==
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
--- OUTSIDE RECORDS SUMMARY | 2025-09-06 16:17 | XMS_ITS | Clinical Summary ---
Author Organization [facility] Address [address] [place] [phone] Phone Care Team Providers Care Manager Community Name Role Phone Unavailable Primary Care Provider [...] Depo-Provera contraceptive status 02/11/2022 Overview (02/11/2022): Via Vehicle Operator Technician Assessment & Plan (02/11/2022 8:45 AM EDT): On Depo via Vehicle Operator Technician. Encouraged condom use every time. Seasonal allergic rhinitis due to pollen 019 Overview (10/17/2020): Tree pollen clarritin Pediatric body mass index (B SD) of greater than or equal to 95th [...] Overview (10/17/2020): Had on 10/13/2020. FU with PROGRAM MANAGER SLP in December 2020 and DEPO given with PROGRAM MANAGER SLP. Immunizations Immunization Administration Dates Next Due DTaP [...] n age: 38 Other Alive Siblings: healt [id number] 1998,2001 Paternal Grandfather Alive Paternal Grandmother Alive [...] Completed 10/17/2020, 015 Procedures * Due to [place] [employer] law, this organization might not be sharing sensitive test results. Procedure Name Priority Date/Time Associated Diagnosis Comments CHLAMYDIA AND GONORRHEA, AMPLIFIED Routine 02/11/2022 11:00 AM EDT Encounter for well adult exam with abnormal findings from Last 3 Months or Most Recently Relevant to Health Maintenance Results * Due to [place] [employer] law, this organization might not be sharing sensitive test results. * Chlamydia and Gonorrhoea, Amplified (02/11/2022 11:00 AM EDT) Chlamydia Trachomatis, DNA Probe NEGATIVE (NEG) [facility] Comment: No Chlamydia Trachomatis RNA detected in this patient's sample (REFERENCE RANGE/NORMAL VALUE: NOT DETECTED) Note: This test uses director acute- mediated amplification method to detect rRNA from C. Trachomatis URINE GC AMP PROBE NEGATIVE (NEG) [facility] Comment: No Neisseria Gonorrhoeae RNA detected in this patient's sample (REFERENCE RANGE/NORMAL VALUE: NOT DETECTED) NOTE: This test uses director acute-mediated amplification method to detect rRNA from N.Gonorrhoeae. [...] without risk of sexual abuse. Consult the [facility] if needed. Contact phone number . Therapeutic failure or success cannot be determined with the Aptima Combo2 assay since nucleic acid may persist following appropriate antimicrobial therapy. The Centers for Disease Control and Prevention (CDC) recommends confirmatory retesting using culture or a different nucleic acid amplification test when positive results occur, if indicated. Testing performed or reported by [facility], a Service of [facility], [place] [address] Chapito Regan MD, Poultry Veterinarian [facility]# [id number] Urine (Urine) 02/11/2022 11: 00 AM EDT 02/11/2022 8:58 PM EDT Regla Valadez MD LAB MICROBIOLOGY - GENERAL OR DERABLES Final Result [facility] from Last 3 Months or Most Recently Relevant to Health Maintenance Insurance [facility] Address: [address] [place] [id number] * Guarantor: LISSETTE VILLA Account Type Relation to Patient Date of Phone Billing Address Personal/Family Mother [address] [place] [id number]
--- OUTSIDE RECORDS SUMMARY | 2025-09-06 16:17 | XMS_ITS | Encounter Summary ---
Author Organization [facility] Address [address] [place] [phone] Phone Care Team Providers Care Pet Counselor Name Role Phone Regla Valadez MD Primary Care Provider [phone] Encounter Details Date Type Department Care Team (Late st Contact Info) Description 02/22/2018 Conversion [facility]counter [facility] [id number] [place] [address] Regla Valadez MD [address] [place] [id number] Social History Tobacco Use Types Packs/Day Years [...] on filedocumented in this encounter Care Teams Pet Counselor Relationship Specialty Start Date End Date Regla Valadez MD [address] [place] [address] PCP - General 02/11/18 12/13/24 documented as of this encounter
== END 2025-09-06 15:10 | disposition home or self-care (01) ==
LOC: HO.HSMS 14:17
PROVIDERS: Visit Provider Psychiatry & Neurology Neurology
DX: G40.909 Epilepsy, unspecified, not intractable, without status epilepticus (principal)
CPT/HCPCS: 99214